=== PATIENT | male | born 1950 | race Caucasian/White ===

== ENCOUNTER → 2017-11-01 08:50 | Outpatient (CLI) | payer MEDICARE, SELFPAY ==
[2017-11-01 10:44] LABS: Hematocrit 43.7 % (40-54); Hemoglobin 14.6 g/dl (13.0-16.5); Mean Corp Hgb Conc 33.4 g/gl (32-36); Mean Corpuscular Volume 92.8 fL (80-94); Mean Platelet Vol. 11.3 fl (6.2-12.0); Platelet Count 232 K/mm3 (150-450); RBC Distribution Width CV 12.5 % (11.6-14.6); RBC Distribution Width SD 41.6 fl (35.1-43.9); Red Blood Count 4.71 M/mm3 (4.6-6.2); White Blood Count 4.8 K/mm3 (4.4-11.0)
[2017-11-01 10:47] LABS: Scan Indicated on CBC? Y/N NO
[2017-11-01 10:56] LABS: ALB/GLOB Ratio 1.1 RATIO (0.9-2.4); AST(SGOT) 41 U/L (15-37); Alanine Aminotransfer ALT/SGPT 96 U/L (16-61); Albumin, Serum 3.8 g/dL (3.2-5.0); Alkaline Phosphatase 62 U/L (45-117); Anion Gap 10 (5-15); BUN 8 mg/dL (7-18); Calcium,Total 8.8 mg/dL (8.5-10.1); Chloride 102 mmol/L (98-107); Cholesterol 218 mg/dL (200); Creatinine, Serum 0.89 mg/dL (0.70-1.30); EST Glomerular Filtration Rate 91 mL/min (>60); Est Glom Filt Rate - Afr Amer 110 mL/min (>60); Globulin 3.5 g/dL (2.2-4.2); Glucose 105 mg/dL (70-110); High Density Lipoprotein 37 mg/dL; Potassium 3.8 mmol/L (3.5-5.1); Protein, Total 7.3 g/dL (6.4-8.2); Sodium Level 142 mmol/L (136-145); T4 Free Direct 0.97 ng/dL (0.76-1.46); Thyroid Stim Hormone (TSH) 2.52 uIU/mL (0.358-3.74); Triglycerides 227 mg/dL; Very Low Density Lipoprotein 45 mg/dL (5-40)
== END ==
PROVIDERS: Family Provider Family Medicine; PCP Family Medicine; Visit Provider Family Medicine
DX: I25.10 Atherosclerotic heart disease of native coronary artery without angina pectoris (principal); E11.9 Type 2 diabetes mellitus without complications; E03.9 Hypothyroidism, unspecified
CPT/HCPCS: 36415; 80053; 80061; 84439; 84443; 85027

== ENCOUNTER → 2017-12-27 12:25 | Outpatient (CLI) | payer MEDICARE, SELFPAY ==
--- NOTE | 2017-12-27 12:33 | CDU_ITS ---
Reason For Study: Carotid Artery Disease Rt. Velocities/BP Lt. Velocities/BP Prox CCA 89/24 cm/sec. Prox CCA 72/21 cm/sec. Mid CCA 66/21 cm/sec. Mid CCA 65/16 cm/sec. Dist CCA 62/19 cm/sec. Dist CCA 66/18 cm/sec. Prox ICA 47/20 cm/sec. Prox ICA 50/11 cm/sec. Mid ICA 70/30 cm/sec. Mid ICA 48/23 cm/sec. Dist ICA 101/37 cm/sec. Dist ICA 56/28 cm/sec. Rt. ICA/CCA = 1.53. Lt. ICA/CCA = 0.86. Prox ECA 82/8 cm/sec. Prox ECA 64/7 cm/sec. Rt. Vert. 26/8 cm/sec. Lt. Vert. 46/18 cm/sec. Right Extracranial There is homogeneous, irregular atherosclerotic plaque noted in the right common carotid artery. There is homogeneous, irregular atherosclerotic plaque noted in the right internal carotid artery. There is no significant atherosclerotic plaque noted in the right external carotid artery. Antegrade flow is noted in the right vertebral artery. Left Extracranial There is heterogeneous, smooth atherosclerotic plaque noted in the left common carotid artery. There is heterogeneous, irregular atherosclerotic plaque noted in the left internal carotid artery. There is heterogeneous, irregular atherosclerotic plaque noted in the left external carotid artery. Antegrade flow is noted in the left vertebral artery. Procedure Carotid Duplex 00778. Exam performed in department. Interpretation Summary Mild (<50%) stenosis right extracranial internal carotid. Mild (<50%) stenosis left extracranial internal carotid. Flow within the vertebral arteries is antegrade bilaterally. Ordering Physician: Jose Lopez Referring Physician: Farhad Tomlinson Performed By: Lisa Brunner, BESS, RVT
== END ==
PROVIDERS: Family Provider Family Medicine; PCP Family Medicine; Visit Provider Surgery Vascular Surgery
DX: Z86.73 Personal history of transient ischemic attack (TIA), and cerebral infarction without residual deficits (principal); Z98.890 Other specified postprocedural states; I10 Essential (primary) hypertension; I25.10 Atherosclerotic heart disease of native coronary artery without angina pectoris; I25.2 Old myocardial infarction; E11.9 Type 2 diabetes mellitus without complications; R09.89 Other specified symptoms and signs involving the circulatory and respiratory systems; M79.2 Neuralgia and neuritis, unspecified; M79.604 Pain in right leg; M79.605 Pain in left leg
CPT/HCPCS: 93880

== ENCOUNTER → 2018-05-22 12:18 | Outpatient (CLI) | payer MEDICARE, SELFPAY ==
[2018-05-22 14:46] LABS: ALB/GLOB Ratio 1.2 RATIO (0.9-2.4); AST(SGOT) 22 U/L (15-37); Alanine Aminotransfer ALT/SGPT 46 U/L (16-61); Albumin, Serum 4.1 g/dL (3.2-5.0); Alkaline Phosphatase 54 U/L (45-117); Anion Gap 9 (5-15); BUN 14 mg/dL (7-18); BUN/Creat Ratio 13.1 RATIO (10-20); Calcium,Total 8.8 mg/dL (8.5-10.1); Chloride 104 mmol/L (98-107); Cholesterol 198 mg/dL (200); Creatinine, Serum 1.07 mg/dL (0.70-1.30); EST Glomerular Filtration Rate 73 mL/min (>60); Est Glom Filt Rate - Afr Amer 89 mL/min (>60); Globulin 3.4 g/dL (2.2-4.2); Glucose 132 mg/dL (74-106); High Density Lipoprotein 34 mg/dL; Potassium 4.3 mmol/L (3.5-5.1); Protein, Total 7.5 g/dL (6.4-8.2); Sodium Level 138 mmol/L (136-145); Thyroid Stim Hormone (TSH) 1.17 uIU/mL (0.358-3.74); Triglycerides 228 mg/dL; Very Low Density Lipoprotein 46 mg/dL (5-40)
== END ==
PROVIDERS: Family Provider Family Medicine; PCP Family Medicine; Visit Provider Family Medicine
DX: E11.9 Type 2 diabetes mellitus without complications (principal); E78.5 Hyperlipidemia, unspecified; R79.89 Other specified abnormal findings of blood chemistry
CPT/HCPCS: 36415; 80053; 80061; 84443

== ENCOUNTER → 2018-06-11 06:19 | Outpatient (CLI) | payer MEDICARE, SELFPAY ==
--- NOTE | 2018-06-11 10:54 | STRESSREP ---
Stress Test Report Pharmacologic myocardial perfusion stress test. 68-year-old man with a history of known coronary artery disease. Stress protocol: Resting EKG demonstrates normal sinus rhythm with a rate of 76 beats minute normal intervals and noted resting blood pressure 120/74 mmHg. 0.4 mg of regadenoson was infused per usual protocol followed by rapid intravenous saline flush injection continuous EKG monitoring was performed. At rest there were no ST or T-wave changes noted suggest abnormal flow reserve at peak infusion no ST or T-wave changes were noted suggest abnormal flow reserve. Patient maintained sinus rhythm with no significant arrhythmias noted. The resting blood pressure is 120/74 the final blood pressure 118/68. No clinical angina was noted. Myocardial perfusion protocol. 14.8 mCi of technetium 99m sestamibi was injected at rest. 0.4 mg of regadenoson was infused per usual protocol peak infusion 44.5 mCi of technetium 99m sestamibi was injected stress images were obtained stress and rest images were reconstructed and compared in the short axis vertical and horizontal long gated images were also obtained Perfusion SPECT analysis: Review of the stress images demonstrate normal uptake of tracer noted in all areas of the myocardium the resting images similarly demonstrate normal uptake of tracer noted in all areas myocardium. No areas of reversibility are noted suggest ischemia no previous infarct is noted. Gated SPECT analysis: The gated ejection fraction is noted to be 72%. Conclusion: Normal pharmacologic myocardial perfusion stress test. Preserved ejection fraction.
== END ==
PROVIDERS: Family Provider Family Medicine; PCP Family Medicine; Visit Provider Internal Medicine Cardiovascular Disease
DX: Z95.1 Presence of aortocoronary bypass graft (principal)
CPT/HCPCS: 78452; 93017; A9500; A4216; J2785

== ENCOUNTER → 2019-02-24 | Outpatient (CLI) | payer MEDICARE, SELFPAY ==
[2019-02-19 14:30] VITALS: BMI 33.1
--- NOTE | 2019-02-24 14:27 | STRESSREP ---
Stress Test Report Date: 02-24-19 Procedure: Exercise tolerance test/imaging study Indications: Chest pain; CAD; PCI; CABG Consent: Per the patient Procedure: The patient exercised on a Rohit protocol for 3 minutes and 22 seconds completing Stage I and 22 seconds of Stage II achieving a peak heart rate of 110 bpm (71 % predicted maximal heart rate) with a peak blood pressure 150/80 mmHg and a peak MET capacity of 4 METs. The baseline ECG demonstrated normal sinus rhythm; nonspecific T wave abnormality. The peak exercise ECG demonstrated subtle nonspecific ST segment depression in leads V4 through V6 and nonspecific T wave abnormality in V1 through V3 with gradual resolution towards baseline in recovery. There was a rare PAC during exercise. The functional capacity was considered decreased. There was chest discomfort during exercise with spontaneous resolution and recovery. The examination was discontinued secondary to dyspnea. Impression: 1. Technically adequate (percent predicted maximal heart rate greater than 85%) exercise tolerance test 2. Peak exercise ECG demonstrated subtle nonspecific ST segment depression in leads V4 through V6 and nonspecific T wave abnormality in V1 through V3 with gradual resolution towards baseline in recovery 3. There was a rare PAC during exercise 4. Nuclear images pending Myocardial perfusion imaging study: Technique: The patient was injected with 13.2 mCi of technetium 99m Cardiolite and subsequently rest SPECT Cardiolite nuclear imaging was obtained in the horizontal long, vertical long, and short axis views. The patient exercised on a Rohit protocol for 3 minutes and 22 seconds completing Stage I and 22 seconds of Stage II achieving a peak heart rate of 110 bpm (71 % predicted maximal heart rate) with a peak blood pressure 150/80 mmHg and a peak MET capacity of 4 METs. The patient was injected with 44.3 mCi of technetium 99m Cardiolite and subsequently stress SPECT Cardiolite nuclear imaging was obtained in the horizontal long, vertical long, and short axis views. A gated Cardiolite study at peak stress was obtained. Interpretation: Rest and stress SPECT Cardiolite nuclear imaging status post realignment, normalization, and attenuation correction, demonstrates relative uniform tracer uptake at rest. Status post stress there is notation of diminished tracer uptake in portions of the basal to mid lateral segments. [There is end systolic thickening and brightening]. The gated Cardiolite study demonstrates [myocardial thickening and inward wall motion]. The reported LVEF is 64 %. Impression: 1. Rest and stress SPECT Cardiolite nuclear imaging demonstrate demonstrate myocardial perfusion changes compatible with stress-induced myocardial ischemia involving portions of the basal to mid lateral segments. 2. The gated Cardiolite study reports an LVEF of 64 %. This note was generated with [employer] software. It may contain incorrect words, spelling, and punctuation that were not noted in checking the note before signing.
== END | disposition home or self-care (01) ==
LOC: CVS 06:23
PROVIDERS: Family Provider Family Medicine; PCP Family Medicine; Referring Provider Nurse Practitioner Family; Visit Provider Nurse Practitioner Family
DX: I25.810 Atherosclerosis of coronary artery bypass graft(s) without angina pectoris (principal); R07.9 Chest pain, unspecified; Z95.5 Presence of coronary angioplasty implant and graft; Z95.1 Presence of aortocoronary bypass graft; I10 Essential (primary) hypertension; E78.5 Hyperlipidemia, unspecified; I73.9 Peripheral vascular disease, unspecified
CPT/HCPCS: 78452; 93017; A9500; A4216

== ENCOUNTER → 2019-02-27 | Outpatient (CLI) | payer MEDICARE, SELFPAY ==
[2019-02-19 14:30] VITALS: BMI 33.1
--- NOTE | 2019-02-27 06:13 | RAD_ITS ---
STUDY: X-RAY CHEST REASON FOR EXAM: Male, 68 years old. Chest pain. TECHNIQUE: PA and lateral views of the chest. COMPARISON: Comparison is made with prior examination dated February 24, 2016. FINDINGS: Hyperinflation. Stable increased markings in the right hemithorax suggestive of scarring. Scattered calcified granulomas. There is no demonstrated pleural abnormality. Sternal cerclage wires and vascular clips are present from a prior sternotomy and coronary artery bypass graft procedure (CABG). Normal mediastinum and krystal. Normal visualized pulmonary arteries. There is atherosclerotic tortuosity of the aortic arch and descending thoracic aorta. There is demineralization of the osseous structures. Normal visualized ribs, clavicles, and shoulders. There is no demonstrated abnormality of the visualized soft tissue structures of the upper abdomen. RAD/Chest PA and Lateral IMPRESSION: Stable examination. Electronically Signed: Stevie Mart, at 10:13 EDT , Service support ,
[2019-02-27 07:34] LABS: Absolute Lymphocyte Count 1.38 X10^3/ul (0.83-4.51); Absolute Neutrophil Count 2.9 X10^3/uL (2.0-7.7); Basophil# 0.04 X10^3/uL; Basophil% 0.8 % (0-1); Eosinophil# 0.24 X10^3/uL; Eosinophils% 4.7 % (0-5); Hematocrit 43.9 % (40-54); Hemoglobin 14.4 g/dl (13.0-16.5); Lymphocyte # 1.38 X10^3/ul (4.0); Lymphocyte % 27.3 % (19-41); Mean Corp Hgb Conc 32.8 g/gl (32-36); Mean Corpuscular Hgb 30.9 pg (27.0-32.0); Mean Corpuscular Volume 94.2 fL (80-94); Mean Platelet Vol. 11.2 fl (6.2-12.0); Monocyte# 0.46 X10^3/uL; Monocyte% 9.1 % (0-10); Neutrophil # 2.92 X10^3/uL (2.7-7.7); Neutrophil % 57.7 % (47-70); Platelet Count 253 K/mm3 (150-450); RBC Distribution Width CV 12.9 % (11.6-14.6); RBC Distribution Width SD 44.2 fl (35.1-43.9); Red Blood Count 4.66 M/mm3 (4.6-6.2); White Blood Count 5.1 K/mm3 (4.4-11.0)
[2019-02-27 07:36] LABS: POSITIVE COUNT NO; POSITIVE DIFFERENTIAL NO; POSITIVE MORPHOLOGY NO
[2019-02-27 07:37] LABS: Anion Gap 8 (5-15); BUN 15 mg/dL (7-18); BUN/Creat Ratio 13.6 RATIO (10-20); Calcium,Total 8.6 mg/dL (8.5-10.1); Chloride 106 mmol/L (98-107); EST Glomerular Filtration Rate 71 mL/min (>60); Est Glom Filt Rate - Afr Amer 86 mL/min (>60); Glucose 99 mg/dL (74-106); Sodium Level 143 mmol/L (136-145)
[2019-02-27 08:22] LABS: AST(SGOT) 22 U/L (15-37); Alanine Aminotransfer ALT/SGPT 38 U/L (16-61); Albumin, Serum 3.6 g/dL (3.2-5.0); Alkaline Phosphatase 65 U/L (45-117); Anion Gap 9 (5-15); BUN 15 mg/dL (7-18); BUN/Creat Ratio 13.2 RATIO (10-20); Calcium,Total 8.6 mg/dL (8.5-10.1); Chloride 106 mmol/L (98-107); Cholesterol 182 mg/dL (200); Creatinine, Serum 1.14 mg/dL (0.70-1.30); EST Glomerular Filtration Rate 68 mL/min (>60); Est Glom Filt Rate - Afr Amer 82 mL/min (>60); Globulin 3.7 g/dL (2.2-4.2); Glucose 96 mg/dL (74-106); High Density Lipoprotein 34 mg/dL; Protein, Total 7.3 g/dL (6.4-8.2); Sodium Level 143 mmol/L (136-145); Triglycerides 293 mg/dL; Very Low Density Lipoprotein 59 mg/dL (5-40)
== END | disposition home or self-care (01) ==
PROVIDERS: Family Provider Family Medicine; PCP Family Medicine; Referring Provider Internal Medicine Cardiovascular Disease; Visit Provider Internal Medicine Cardiovascular Disease
DX: I25.810 Atherosclerosis of coronary artery bypass graft(s) without angina pectoris (principal); Z95.5 Presence of coronary angioplasty implant and graft; Z95.1 Presence of aortocoronary bypass graft; I65.21 Occlusion and stenosis of right carotid artery; E78.5 Hyperlipidemia, unspecified; F17.201 Nicotine dependence, unspecified, in remission; I10 Essential (primary) hypertension; E11.9 Type 2 diabetes mellitus without complications
CPT/HCPCS: 36415; 71046; 80048; 80053; 80061; 84443; 85025

== ENCOUNTER 2019-03-06 08:44 | Day surgery (SDC) | payer MEDICARE, SELFPAY ==
[2019-02-19 14:30] VITALS: BMI 33.1
[2019-03-04 08:59] VITALS: BMI 33.0
--- NOTE | 2019-03-06 12:09 | CL.D_ITS ---
Patient Name: SHAZIA MCCURDY Study Date: 03/06/2019 Performing: Ned Flores MD Ht: 72.04 inches 183 cm : 1950 Wt: 244.71 lbs 111 kg Age: 68 Gender: male BSA: 2.32 PROCEDURE(S) PERFORMED SK82-YTA/COR/CABG CLINICAL PROFILE AND INDICATIONS Indications: Suspected CAD Heart Failure: None Stress/Imaging Stress Test w/SPECT MPI: Yes Result: Positive Intermediate RiskStress Test with SP ECT MPI: Positive Intermediate Risk CAD Presentations: Other: Shortness of breath CONCLUSIONS Severe [place] vessel disease as well as disease of a sequential saphenous vein graft. No significant outflow is noted. Would recommend medical therapy. RECOMMENDATIONS Medical therapy DESCRIPTION OF PROCEDURE The patient arrived to the procedure lab. The risks and benefits of the procedure as well as a full d escription of our services here and current unavailability of surgical backup were fully explained to the patient and/or their significant other prior to the catheterization. The Timeout was completed, verifying the correct patient and procedure. The patient's procedural site was prepped and draped in the usual fashion. Local anesthetic was given subcutaneously to right groin region with Lidocaine 2%. Using a modified Seldinger technique, arterial access was obtained via the right femoral artery, a 5 Fr sheath was inserted. Left Coronary Artery selective angiography was performed in multiple views u sing a 5 Fr. JL4 catheter. Right Coronary Artery selective angiography was then performed in multiple views using a 5 Fr. 3DRC (Gasper) catheter. Saphenous Vein graft to the RCA selective angiography was performed in multiple views using a 5 Fr. 3DRC (Gasper) catheter. Saphenous Vein graft to the RCA selective angiography was performed in multiple views using a 5 Fr. AR MOD catheter. Left internal mammary artery graft to the LAD selective angiography was performed in multiple views using a 5 Fr. AR MOD catheter. Saphenous Vein graft to the Circumflex sequential to the diag selectiv e angiography was performed in multiple views using a 5 Fr. LCB catheter.The arterial sheath was pull ed and manual compression applied until hemostasis is achieved. CORONARY ANGIOGRAPHY DOMINANCE: Right Dominant LEFT HEART ASSESSMENT Left Ventricular Ejection Fraction: by Echo 55 % LEFT MAIN: Moderate luminal irregularities up to 50% LEFT ANTERIOR DESCENDING ARTERY: is occluded CIRCUMFLEX ARTERY: PROX CIRC: Severe disease with a mid segment placed stent with severe disease noted within the stent and then the vessel is totally occluded RIGHT CORONARY ARTERY: PROX RCA: is occluded GRAFTS: HUFF graft to the Mid LAD is patent Saphenous Vein graft to the RPDA is patent Saphenous Vein graft to the RPDA There is mild distal disease noted in this vessel but no high-grade stenosis noted Sequential graft to the Diagonal vessel and obtuse marginal vessel is severely diseased in the body o f the graft. The distal segment anastomosing to the circumflex vessel is totally occluded. Slow aleksander w is noted in the body of this graft. COLLATERAL FLOW: Collateral flow from Right to Left COMPLICATIONS No Complications PROCEDURE MEDICATIONS Versed 1 mg IV Fentanyl 25 mcg IV Fentanyl 25 mcg IV Fentanyl 25 mcg IV Versed 1 mg IV Oxygen: 2 L/min via nasal cannula SUMMARY OF HEMODYNAMIC DATA Time AIR REST ECG 09:44:09 AO 122/76 (97) SA 10:58:39 Signed By Ned Flores MD On 03/06/2019 12:08:01 PM Ned Flores MD
== END 2019-03-06 16:38 | disposition home or self-care (01) ==
LOC: CLSP 08:45
PROVIDERS: Family Provider Family Medicine; PCP Family Medicine; Referring Provider Internal Medicine Cardiovascular Disease; Visit Provider Internal Medicine Cardiovascular Disease
DX: I25.810 Atherosclerosis of coronary artery bypass graft(s) without angina pectoris (principal); I10 Essential (primary) hypertension; E78.00 Pure hypercholesterolemia, unspecified; I73.9 Peripheral vascular disease, unspecified; E11.9 Type 2 diabetes mellitus without complications; G47.33 Obstructive sleep apnea (adult) (pediatric); J44.9 Chronic obstructive pulmonary disease, unspecified; I65.21 Occlusion and stenosis of right carotid artery; E66.9 Obesity, unspecified; Z68.33 Body mass index [BMI] 33.0-33.9, adult; Z86.73 Personal history of transient ischemic attack (TIA), and cerebral infarction without residual deficits; Z95.1 Presence of aortocoronary bypass graft; Z79.84 Long term (current) use of oral hypoglycemic drugs; Z79.82 Long term (current) use of aspirin; Z79.4 Long term (current) use of insulin; Z79.899 Other long term (current) drug therapy; Z87.891 Personal history of nicotine dependence
CPT/HCPCS: 93455; 99152; 99153; J7040; Q9967; C1769

== ENCOUNTER → 2019-10-30 08:45 | Outpatient (CLI) | payer MEDICARE, SELFPAY ==
[2019-10-23 13:54] VITALS: BMI 32.6
--- NOTE | 2019-10-30 08:49 | AAAS_ITS ---
Reason For Study: H/O CABG, ECP Aorta Measurements Aorta Doppler Measurements Proximal aorta measures2.43 x 2.43cm. in cross- Peak systolic flow velocities within the proximal sectional axis. aorta measure 77.1 cm/sec. Proximal aorta measures2.44cm. in longitudinal Peak systolic flow velocities within the mid aorta axis. measure 62.9 cm/sec. Mid aorta measures2.46 x 2.46cm. in cross- Peak systolic flow velocities within the distal sectional axis. aorta measure 64.1 cm/sec. Mid aorta measures2.50cm. in longitudinal axis. Distal aorta measures1.93 x 2.0cm. in cross- sectional axis. Distal aorta measures2.0cm. in longitudinal axis. Common illliacs not seen due to bowel gases and body habitus. PT had difficulty tolerating probe pressure. Interpretation Summary 1. Aortoiliac no aneurysm or stenosis where visualized. Ordering Physician: Ned Flores Referring Physician: rachel Tomlinson Performed By: Karla Monroy, RDCS, RVT
== END ==
LOC: CVS 08:45
PROVIDERS: PCP Family Medicine; Referring Provider Internal Medicine Cardiovascular Disease; Visit Provider Internal Medicine Cardiovascular Disease
DX: I25.709 Atherosclerosis of coronary artery bypass graft(s), unspecified, with unspecified angina pectoris (principal); Z95.1 Presence of aortocoronary bypass graft; Z95.5 Presence of coronary angioplasty implant and graft
CPT/HCPCS: 76706

== ENCOUNTER → 2019-11-26 09:48 | Outpatient (CLI) | payer MEDICARE, SELFPAY ==
[2019-11-09 14:31] VITALS: BMI 32.6
== END ==
PROVIDERS: PCP Family Medicine; Referring Provider Internal Medicine Cardiovascular Disease; Visit Provider Internal Medicine Cardiovascular Disease
DX: I25.708 Atherosclerosis of coronary artery bypass graft(s), unspecified, with other forms of angina pectoris (principal); I25.118 Atherosclerotic heart disease of native coronary artery with other forms of angina pectoris

== ENCOUNTER 2019-12-02 08:14 | Day surgery (SDC) | payer MEDICARE, SELFPAY ==
--- NOTE | 2019-11-09 02:36 | HP_ITS ---
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 Is patient in pain?: No Allergies amlodipine Allergy (Verified 11/09/19 14:30) dyspnea, itching atorvastatin calcium [From Lipitor] Allergy (Verified 11/09/19 14:30) Other lovastatin [From Advicor] Allergy (Verified 11/09/19 14:30) Rash niacin [From Advicor] Allergy (Verified 11/09/19 14:30) Rash rosuvastatin calcium [From Crestor] Allergy (Verified 11/09/19 14:30) Rash Cbeysjc-Sox-Hap Reductase Inhibitor Allergy (Verified 11/09/19 14:30) Hives SODIUM PENTHOL Allergy (Uncoded 10/23/19 13:55) Other Medications Glimepiride [Amaryl] 4 mg PO DAILY 12/05/14 [History Confirmed 11/09/19] Levothyroxine [Synthroid] 75 mcg PO DAILY 12/05/14 [History Confirmed 11/09/19] Tiotropium [place] [Spiriva 18 MCG] 1 puff INHALATION DAILY 12/05/14 [History Confirmed 11/09/19] metFORMIN HCl [Glucophage] 850 mg PO BIDCM 12/05/14 [History Confirmed 11/09/19] Aspirin [Aspirin, Baby] 81 mg PO DAILY@0800 05/05/15 [History Confirmed 11/09/19] Albuterol Inhaler [Ventolin Hfa (SP)] 2 puff INHALATION Q6H PRN PRN 05/16/15 [History Confirmed 11/09/19] gemfibrozil 600 mg tablet 600 mg PO BID 11/18/17 [History Confirmed 11/09/19] insulin glargine 100 unit/mL (3 mL) subcutaneous pen 70 unit SC DAILY ml 02/19/19 [History Confirmed 11/09/19] insulin lispro 100 unit/mL subcutaneous pen 10 unit SC TID 100 Days #30 ml 02/19/19 [History Confirmed 11/09/19] clopidogrel 75 mg tablet 75 mg PO DAILY #90 tab 03/02/19 [Rx Confirmed 11/09/19] furosemide 40 mg tablet 40 mg PO DAILY #90 tab 05/28/19 [Rx Confirmed 11/09/19] ranolazine 500 mg tablet,extended release,12 hr 500 mg PO BID #60 tab 05/28/19 [Rx Confirmed 11/09/19] metoprolol tartrate 25 mg tablet 25 mg PO .COMPLEX #45 tab 07/06/19 [Rx Confirmed 11/09/19] nitroglycerin 0.4 mg sublingual tablet 0.4 mg SUBLINGUAL Q5-15M PRN #25 tab 08/14/19 [Rx Confirmed 11/09/19] budesonide-formoterol HFA 160 mcg-4.5 mcg/actuation aerosol inhaler INHALATION 10/23/19 [History Confirmed 11/09/19] isosorbide mononitrate 30 mg tablet,extended release 24 hr 30 mg PO BID #60 tab 10/23/19 [Rx Confirmed 11/09/19] omeprazole 40 mg capsule,delayed release 40 mg PO DAILY #90 cap 10/23/19 [Rx Confirmed 11/09/19] sitagliptin 100 mg tablet 100 mg PO DAILY tab 10/23/19 [History Confirmed 11/09/19] [facility] Medical History Atherosclerotic heart disease hopi coronary artery w/angina pectoris (Chronic) 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 (Chronic) Essential (primary) hypertension (Chronic) Hyperlipidemia (Chronic) COPD (chronic obstructive pulmonary disease) (Chronic) CVA (cerebral vascular accident) (Chronic) Obesity (Chronic) Occlusion and stenosis of right carotid artery (Chronic) PVD (peripheral vascular disease) (Chronic) Tobacco dependence in remission (Chronic) Type 2 diabetes mellitus (Chronic) Surgical History History of coronary artery stent placement (Resolved 11/13/11) H/O coronary artery bypass surgery (Resolved 06/21/03) History of left heart catheterization (Resolved 03/06/19) Hx of cataract surgery (Resolved) Family History Grandmother Cancer Father FH: brain aneurysm CAD (coronary artery disease) Mother Diabetes Brother , from CABG CAD (coronary artery disease) Social History (Updated 11/09/19 @ 14:36 by Dano Brown MD) how long ago did patient quit smokin alcohol intake: never substance use type: does not use diet: diabetic caffeine: Yes Type: coffee what type of physical activity do you participate in: none seatbelt use: always do you feel safe at home: Yes HPI HPI HPI: SHAZIA MCCURDY, is a 69 M who presents to the office today for HPI HPI Surgical H&P: Yes HPI: SHAZIA MCCURDY, is a 69 M who presents to the office today for Evaluation for endoscopy. I last performed a colonoscopy on him on 02/11/2014. He had a personal history of colonic polyps as well as a family history of colon cancer his colonoscopy was normal and I recommended a 5-year follow-up plan. Patient has been noticing some chronic abdominal pain generalized sore to touch 2 out of 10 and mostly on the left side. He himself has not noticed any blood. His stools have sometimes been looser than normal. ROS General General: Yes fatigue; no weight change, appetite, colon cancer, breast cancer or weakness HEENT HEENT: Yes eye surgery; no difficulty swallowing, eye injury, swollen glands or hoarseness Endo Endocrine: Yes diabetes mellitus; no thyroid disease, thyroid cancer, Hair loss, heat intolerance or cold intolerance Skin Skin: Yes rash; no changing moles Breast Breast: No left breast lump, right breast lump, nipple discharge, breast pain, abnormal mammogram, abnormal US or breast enlargement Musc Musculoskeletal: Yes arthritis; no back problems, rheumatoid arthritis, gout or joint pain Cardio Cardiovascular: Yes heart disease, high blood pressure and heart stent; no murmur, pacemaker, atrial fibrillation, heart attack, palpitations, shortness of breat with exertion or chest pain Psych Psychiatric: No depression, anxiety or hearing voices Resp Respiratory: Yes shortness of breath, Yes sleep apnea, Yes cough, Yes COPD, Yes asthma, Yes emphysema, No wheezing Gastro Gastrointestinal: Yes abdominal pain, No nausea or vomiting, No diarrhea, No constipation, No blood in stool, Yes acid reflux, Yes hemorrhoids, No ulcers, No gallbladder problem, No black,tarry stools Isidro Hematologic: Yes blood thinners, No blood disorders, No bleeding, No anemia, No blood clots Neuro Neurologic: No system reviewed and no additional complaints, except as docu, No as per HPI, No abnormal walking, No abnormal hearing, No abnormal movements, No abnormal speech, No behavioral changes, No burning sensations, No confusion, No seizure-like activity, No unsteadiness, No dizziness, No localized weakness, No frequent falls, No headache(s), No lack of coordination, No loss of vision, No memory loss, Yes numbness, No other visual disturbances, No radiating pain, No restless legs, No sensory deficit, No fainting, Yes tingling, No tremor(s), No weakness, No other Exam Const General: no acute distress, well developed, well hydrated Orientation: oriented to person, oriented to place, oriented to time [facility] Head: normocephalic, atraumatic Ears: external ears normal Mouth: moist mucous membranes Eyes Sclera: sclerae normal Pupils: normal by confrontation Neck Neck: no lymphadenopathy noted Neck mass: No Thyroid: thyroid normal, symmetrical Chest Chest palpation & inspection: normal inspection of the chest Breast Palpation: No nipple discharge Resp Effort & Inspection: normal respiratory effort Auscultation: clear to auscultation bilaterally Percussion: percussion normal Cardio Rate: regular rate Rhythm: regular rhythm Heart Sounds: no murmurs GI Inspection: obesity Palpation: soft, no hepatosplenomegaly, no masses, nontender Rectal Exam: other Other: Rectal exam deferred. Extrem General: normal to inspection, no clubbing, cyanosis or edema Assessment & Plan Problems 1. Generalized abdominal pain R10.84 2. Family history of colon cancer Z80.0 Plan I have discussed the above with the patient. I have offered the patient colonoscopy for evaluation. I have explained the risks/benefits of the procedure and described the procedure. I have discussed the risks with the patient, including but not limited to: infection, bleeding, perforation of the GI tract requiring emergency surgery, inability to complete the procedure, injury to any internal organs, complications of anesthesia, etc. - the patient understands and agrees to proceed. I have answered all the patient's questions to the patient's satisfaction and the patient has no further questions. The patient has been given instructions for the colon cleansing preparation. Coding Level of Care Code Off vis,new,level 3 Diagnoses Generalized abdominal pain R10.84 Family history of colon cancer Z80.0 11/09/19 1436 <Electronically signed by Dano ramírez MD> Date _ Dano Brown MD I have re-examined the patient. There are no clinical changes since date of exam.
[2019-11-09 14:31] VITALS: BMI 32.6
[2019-12-02] VITALS (7 sets, daily range): BP systolic 105–130; BP diastolic 36–79; PULSE 69–77; RESP 17–19; TEMP 36.4–37; O2SAT 93–96; BMI 34.2
[2019-12-02 08:50] LABS: Bedside Glucose 132 mg/dL (70-110)
[2019-12-02] MEDS: Lactated Ringers 1,000 ML 100 ML IV (09:12)
[2019-12-02] MEDS: Ipratropium/Albuterol Sulfate 3 ML AMPUL.NEB INHALATION (09:27)
--- NOTE | 2019-12-02 10:05 | OP.COLON_ITS ---
Patient Name: Georgi Ramires Procedure Date: 12/02/2019 9:16 AM Date of : 1950 Age: 69 Procedure: Colonoscopy Indications: Family history of colon cancer in a first-degree relative, Generalized abdominal pain Providers: Dano Brown MD Referring MD: Marcell Tomlinson Medicines: See the Anesthesia note for documentation of the administered medications Patient Profile: This is a 69 year old male. Refer to note in patient chart for documentation of history and physical. Last Colonoscopy: 2013. Complications: No immediate complications. Procedure: Pre-Anesthesia Assessment: - Prior to the procedure, a History and Physical was performed, and patient medications and allergies were reviewed. The patient's tolerance of previous anesthesia was also reviewed. The risks and benefits of the procedure and the sedation options and risks were discussed with the patient. All questions were answered, and informed consent was obtained. Prior Anticoagulants: The patient has taken aspirin, last dose was 1 day prior to procedure. ASA Grade Assessment: III - A patient with severe systemic disease. After reviewing the risks and benefits, the patient was deemed in satisfactory condition to undergo the procedure. After I obtained informed consent, the scope was passed under direct vision. Throughout the procedure, the patient's blood pressure, pulse, and oxygen saturations were monitored continuously. The Colonoscope was introduced through the anus and advanced to the cecum, identified by appendiceal orifice and ileocecal valve. The colonoscopy was performed without difficulty. The patient tolerated the procedure well. The quality of the bowel preparation was fair. Scope In: 9:42:58 AM Scope Withdrawal Time 0 hours 11 minutes 51 seconds Scope Out: 10:00:00 AM Total Procedure Duration Time 0 hours 17 minutes 2 seconds Findings: Many small-mouthed diverticula were found in the sigmoid colon and descending colon. Non-bleeding internal hemorrhoids were found during retroflexion. The hemorrhoids were mild and small. The exam was otherwise without abnormality. Impression: - Preparation of the colon was fair. - Diverticulosis in the sigmoid colon and in the descending colon. - Non-bleeding internal hemorrhoids. - The examination was otherwise normal. - No specimens collected. Recommendation: - Discharge patient to home. - Resume previous diet. - Continue present medications. - Repeat colonoscopy in 5 years for surveillance. - Return to my office in 1 week. Procedure Code(s): --- Professional --- 37550, Colonoscopy, flexible; diagnostic, including collection of specimen(s) by brushing or washing, when performed (separate procedure) Diagnosis Code(s): --- Professional --- K64.8, Other hemorrhoids Z80.0, Family history of malignant neoplasm of digestive organs R10.84, Generalized abdominal pain K57.30, Diverticulosis of large intestine without perforation or abscess without bleeding CPT copyright 2017 [employer]. All rights reserved. The codes documented in this report are preliminary and upon hand surgeon review may be revised to meet current compliance requirements. MD Dano Velarde MD 12/02/2019 10:05:09 AM This report has been signed electronically. Number of Addenda: 0 Note Initiated On: 12/02/2019 9:16 AM
--- NOTE | 2019-12-02 10:06 | OP.CCLET_ITS ---
12/02/2019 Marcell Tomlinson [address] [place] [address] Re : Colonoscopy procedure for Georgi Ramires Dear Dr. Tomlinson This procedure was performed on Monday, December 02, 2019. My impressions and recommendations are as follows: Impressions : - Preparation of the colon was fair. - Diverticulosis in the sigmoid colon and in the descending colon. - Non-bleeding internal hemorrhoids. - The examination was otherwise normal. - No specimens collected. Recommendations : - Discharge patient to home. - Resume previous diet. - Continue present medications. - Repeat colonoscopy in 5 years for surveillance. - Return to my office in 1 week. My findings are described in the full procedure note, which is enclosed. If I can be of further assistance, please feel free to contact me at Doctor phone number(s): , Fax: [phone], Work: . Sincerely, MD Dano Velarde MD 12/02/2019 10:05:09 AM This report has been signed electronically.
== END 2019-12-02 10:55 | disposition home or self-care (01) ==
LOC: EN 08:15 → AC 08:17
PROVIDERS: PCP Family Medicine; Referring Provider Family Medicine; Visit Provider Surgery
PROC: 0DJD8ZZ Inspection of Lower Intestinal Tract, Via Natural or Artificial Opening Endoscopic (ICD-10-PCS; CPT 45378; principal; 2019-12-02 09:25)
DX: K57.30 Diverticulosis of large intestine without perforation or abscess without bleeding (principal); K64.8 Other hemorrhoids; Z80.0 Family history of malignant neoplasm of digestive organs; Z86.010 Personal history of colon polyps; I25.709 Atherosclerosis of coronary artery bypass graft(s), unspecified, with unspecified angina pectoris; I10 Essential (primary) hypertension; E78.5 Hyperlipidemia, unspecified; J44.9 Chronic obstructive pulmonary disease, unspecified; E66.9 Obesity, unspecified; Z68.32 Body mass index [BMI] 32.0-32.9, adult; I65.21 Occlusion and stenosis of right carotid artery; I73.9 Peripheral vascular disease, unspecified; E11.9 Type 2 diabetes mellitus without complications; G47.30 Sleep apnea, unspecified; G25.81 Restless legs syndrome; K21.9 Gastro-esophageal reflux disease without esophagitis; E06.9 Thyroiditis, unspecified; Z86.73 Personal history of transient ischemic attack (TIA), and cerebral infarction without residual deficits; Z79.4 Long term (current) use of insulin; Z79.84 Long term (current) use of oral hypoglycemic drugs; Z79.82 Long term (current) use of aspirin; Z79.02 Long term (current) use of antithrombotics/antiplatelets; Z79.899 Other long term (current) drug therapy; Z87.891 Personal history of nicotine dependence
CPT/HCPCS: 45378; 82962; 94640; J7120; A4216; J2405

== ENCOUNTER 2019-12-28 09:15 | Outpatient (RCR) | payer MEDICARE, SELFPAY ==
[2019-11-09 14:31] VITALS: BMI 32.6
[2019-12-02 08:34] VITALS: BMI 34.2
== END 2019-12-29 23:59 ==
LOC: CR 09:15
PROVIDERS: PCP Family Medicine; Referring Provider Internal Medicine Cardiovascular Disease; Visit Provider Internal Medicine Cardiovascular Disease
DX: I25.118 Atherosclerotic heart disease of native coronary artery with other forms of angina pectoris (principal); I25.708 Atherosclerosis of coronary artery bypass graft(s), unspecified, with other forms of angina pectoris
CPT/HCPCS: 92971; G0166

== ENCOUNTER 2019-12-30 09:30 | Outpatient (RCR) | payer MEDICARE, SELFPAY ==
[2019-12-02 08:34] VITALS: BMI 34.2
== END 2020-01-28 23:59 ==
LOC: CR 09:30
PROVIDERS: PCP Family Medicine; Referring Provider Internal Medicine Cardiovascular Disease; Visit Provider Internal Medicine Cardiovascular Disease
DX: I25.708 Atherosclerosis of coronary artery bypass graft(s), unspecified, with other forms of angina pectoris (principal); I25.118 Atherosclerotic heart disease of native coronary artery with other forms of angina pectoris

== ENCOUNTER → 2020-01-14 14:53 | Outpatient (CLI) | payer MEDICARE, SELFPAY ==
[2019-12-02 08:34] VITALS: BMI 34.2
[2020-01-14 17:38] LABS: Hemoglobin 13.6 g/dL (13.0-16.5); Mean Corp Hgb Conc 31.6 g/dL (32-36); Mean Corpuscular Hgb 29.8 pg (27.0-32.0); Mean Corpuscular Volume 94.3 fL (80-94); Mean Platelet Vol. 11.5 fl (6.2-12.0); Platelet Count 301 K/mm3 (150-450); RBC Distribution Width CV 12.5 % (11.6-14.6); RBC Distribution Width SD 43.4 fl (35.1-43.9); Red Blood Count 4.56 M/mm3 (4.6-6.2); White Blood Count 7.2 K/mm3 (4.4-11.0)
[2020-01-14 19:06] LABS: AST(SGOT) 24 U/L (15-37); Alanine Aminotransfer ALT/SGPT 35 U/L (16-61); Albumin, Serum 3.8 g/dL (3.2-5.0); Alkaline Phosphatase 50 U/L (45-117); Anion Gap 5 (5-15); BUN 22 mg/dL (7-18); BUN/Creat Ratio 16.2 RATIO (10-20); Calcium,Total 9.5 mg/dL (8.5-10.1); Chloride 101 mmol/L (98-107); Creatinine, Serum 1.36 mg/dL (0.70-1.30); EST Glomerular Filtration Rate 55 mL/min (>60); Est Glom Filt Rate - Afr Amer 67 mL/min (>60); Glucose 142 mg/dL (74-106); PSA,Total - Annual Screen 1.36 ng/mL (0.00-4.00); Potassium 4.5 mmol/L (3.5-5.1); Protein, Total 7.8 g/dL (6.4-8.2); Sodium Level 137 mmol/L (136-145); Thyroid Stim Hormone (TSH) 4.14 uIU/mL (0.358-3.74)
== END ==
PROVIDERS: PCP Family Medicine; Referring Provider Family Medicine; Visit Provider Family Medicine
DX: E11.9 Type 2 diabetes mellitus without complications (principal); Z12.5 Encounter for screening for malignant neoplasm of prostate; J44.9 Chronic obstructive pulmonary disease, unspecified
CPT/HCPCS: 36415; 80053; 84153; 84443; 85027; G0103

== ENCOUNTER 2020-02-26 09:15 | Outpatient (RCR) | payer MEDICARE, SELFPAY ==
[2019-12-02 08:34] VITALS: BMI 34.2
== END 2020-02-28 23:59 ==
LOC: CR 09:15
PROVIDERS: PCP Family Medicine; Referring Provider Internal Medicine Cardiovascular Disease; Visit Provider Internal Medicine Cardiovascular Disease
DX: I25.118 Atherosclerotic heart disease of native coronary artery with other forms of angina pectoris (principal); I25.708 Atherosclerosis of coronary artery bypass graft(s), unspecified, with other forms of angina pectoris
CPT/HCPCS: 92971; G0166

== ENCOUNTER 2020-02-29 06:28 | Outpatient (RCR) | payer MEDICARE, SELFPAY ==
[2019-12-02 08:34] VITALS: BMI 34.2
== END 2020-03-29 23:59 ==
LOC: CR 06:28
PROVIDERS: PCP Family Medicine; Referring Provider Internal Medicine Cardiovascular Disease; Visit Provider Internal Medicine Cardiovascular Disease
DX: I25.118 Atherosclerotic heart disease of native coronary artery with other forms of angina pectoris (principal); I25.708 Atherosclerosis of coronary artery bypass graft(s), unspecified, with other forms of angina pectoris

== ENCOUNTER → 2020-03-11 12:38 | Outpatient (CLI) | payer MEDICARE, SELFPAY ==
[2019-12-02 08:34] VITALS: BMI 34.2
--- NOTE | 2020-03-11 13:15 | CDU_ITS ---
Reason For Study: STENOSIS Rt. Velocities/BP Lt. Velocities/BP Prox CCA 68/17 cm/sec. Prox CCA 73/11 cm/sec. Mid CCA 64/12 cm/sec. Mid CCA 75/17 cm/sec. Dist CCA 54/13 cm/sec. Dist CCA 90/16 cm/sec. Prox ICA 57/22 cm/sec. Prox ICA 63/22 cm/sec. Mid ICA 91/32 cm/sec. Mid ICA 70/21 cm/sec. Dist ICA 92/37 cm/sec. Dist ICA 72/27 cm/sec. Rt. ICA/CCA = 1.4. Lt. ICA/CCA = 1.0. Prox ECA 73/7 cm/sec. Prox ECA 85/9 cm/sec. Rt. Vert. 41/10 cm/sec. Lt. Vert. 67/20 cm/sec. Right Extracranial There is homogeneous, smooth atherosclerotic plaque noted in the right common carotid artery. There is homogeneous, smooth atherosclerotic plaque noted in the right internal carotid artery. There is homogeneous, smooth atherosclerotic plaque noted in the right external carotid artery. Antegrade flow is noted in the right vertebral artery. There is heterogeneous, irregular atherosclerotic plaque noted in the right bulb. Left Extracranial There is heterogeneous, irregular atherosclerotic plaque noted in the left common carotid artery. There is heterogeneous, irregular atherosclerotic plaque noted in the left internal carotid artery. There is heterogeneous, irregular atherosclerotic plaque noted in the left external carotid artery. Antegrade flow is noted in the left vertebral artery. There is heterogeneous, irregular atherosclerotic plaque noted in the left bulb. Procedure Carotid Duplex [id number]. Exam performed in department. Interpretation Summary Mild (<50%) stenosis right extracranial internal carotid. Mild (<50%) stenosis left extracranial internal carotid. Flow within the vertebral arteries is antegrade bilaterally. Ordering Physician: Jose Lopez Referring Physician: SONJA MCMILLAN Performed By: Marika Vazquez, BESS, RVT
== END ==
PROVIDERS: PCP Family Medicine; Referring Provider Surgery Vascular Surgery; Visit Provider Surgery Vascular Surgery
DX: I65.23 Occlusion and stenosis of bilateral carotid arteries (principal); Z86.73 Personal history of transient ischemic attack (TIA), and cerebral infarction without residual deficits; Z98.890 Other specified postprocedural states
CPT/HCPCS: 93880

== ENCOUNTER 2020-03-31 01:38 | Emergency (ER) | payer MEDICARE, SELFPAY ==
[2019-12-02 08:34] VITALS: BMI 34.2
[2020-03-31 01:40] VITALS: BP 152/82; PULSE 80; RESP 18; TEMP 36.9; O2SAT 92; BMI 35.2
--- NOTE | 2020-03-31 01:46 | ED.DCSUM_ITS ---
History of Present Illness Chief Complaint: Overdose Informant: Patient Narrative: Patient stated he went to take his long-acting insulin this evening and normally takes 60 units and gave himself an extra short acting insulin. His blood sugar at that time approximately 4 hours ago was 180. It is slowly come down into the low 100s. He denies any symptoms. He did take some glucose tablets and a piece of candy. Currently he feels okay. He called poison control and they advised him to come in for further evaluation and monitoring to make sure he does not bottom out his sugars. - Past Medical History (1) Hx of colonoscopy Status: Acute Comment: 11/03/2019 (2) Atherosclerosis of coronary artery bypass graft of [place] heart with angina pectoris Status: Chronic (3) Atherosclerotic heart disease [place] coronary artery w/angina pectoris Status: Chronic (4) COPD (chronic obstructive pulmonary disease) Status: Chronic (5) CVA (cerebral vascular accident) Status: Chronic (6) Essential (primary) hypertension Status: Chronic (7) Hyperlipidemia Status: Chronic (8) Obesity Status: Chronic (9) Occlusion and stenosis of right carotid artery Status: Chronic (10) PVD (peripheral vascular disease) Status: Chronic (11) Tobacco dependence in remission Status: Chronic (12) Type 2 diabetes mellitus Status: Chronic (13) H/O coronary artery bypass surgery Status: Resolved Comment: CABG X4 HUFF to LAD, Sequential SVG to D1 & LCx & SVG to RCA 06/21/2003 (14) History of coronary artery stent placement Status: Resolved Comment: NBF-[id number]-[id number]-Distal Cx w/ 4.0 x 16 mm and 4.0 x 8 mm Promus Element 11/13/2011 (15) History of left heart catheterization Status: Resolved Comment: Severe [place] vessel disease as well as disease of a sequential saphenous vein graft. No significant outflow is noted. Would recommend medical therapy. Past Medical History - Allergies and Home Meds Allergies/Adverse Reactions: Allergies amlodipine Allergy (Verified 12/09/19 08:07) dyspnea, itching atorvastatin calcium [From Lipitor] Allergy (Verified 12/09/19 08:07) Other lovastatin [From Advicor] Allergy (Verified 12/09/19 08:07) Rash niacin [From Advicor] Allergy (Verified 12/09/19 08:07) Rash rosuvastatin calcium [From Crestor] Allergy (Verified 12/09/19 08:07) Rash Cpaynlr-Ylp-Swq Reductase Inhibitor Allergy (Verified 12/09/19 08:07) Hives sodium pentothal Allergy (Uncoded 12/09/19 08:07) Other sister had reaction/ pt states was tested and also has reaction Primary Care Physician: Marcell oTmlinson MD [Primary Care Provider] - Prior records reviewed: Yes Past Medical History: - - See problem list Surgical History: coronary bypass surgery Lives: With Family Smoking Status: Former smoker Alcohol: None Drugs: None - Family History Paternal Family History: Family History (Last Reviewed 12/09/19 @ 08:06 by Kala Osei) Grandmother Cancer Father FH: brain aneurysm CAD (coronary artery disease) Mother Diabetes Brother CAD (coronary artery disease) Family History: Reports: Heart Disease Review of Systems General: Denies: Chills, Fever, Sweats Eyes: Denies: Visual changes - bilaterally, Diplopia ENT: Denies: Rhinorrhea, Sore throat Cardiovascular: Denies: Chest pain, Palpitations Respiratory: Denies: Dyspnea, Cough, Dyspnea on exertion Gastrointestinal: Denies: Abdominal pain, Nausea, Vomiting, Diarrhea, Melena, Hematochezia Genitourinary: Denies: Dysuria, Hematuria, Frequency Musculoskeletal: Denies: Back pain, Extremity Pain Skin: Denies: Rash, Wounds Neurological: Denies: Headache, Weakness, Numbness Physical Exam Vital Signs/Narrative: Vital Signs Temp Pulse Resp BP Pulse Ox 03/31/20 01:40 98.5 F 80 18 152/82 H 92 General: Well nourished, Well developed, No Acute Distress Head: Normocephalic, Atraumatic Eyes: Perrl, EOMI ENT: Moist mucous membranes, No rhinorrhea Neck: Supple, Nontender Cardiovascular: Regular rate, Regular rhythm, No murmurs Respiratory: No distress, CTA bilaterally, Chest nontender Abdomen: Soft, Nontender, Nondistended, Normal bowel sounds Back: Nontender, Normal Inspection Extremities: Nontender, No edema Skin: Normal color, No rash Neurological: Alert, Oriented x3, Cranial nerves II-XII grossly intact, Normal Strength, Normal Sensation Psychological: Normal affect, Normal Mood Diagnostic/Tx/Re-eval - Medical Decision Making BGT obtained. It is 103. Patient given an oral snack. Repeat blood sugar 1 hour later is obtained. Blood sugar remains above 100. At this time I feel the patient can be discharged. He took this medication approximately 5 hours ago. We will continue to eat snacks throughout the evening and follow-up as an outpatient ED Disposition - Plan for ED Patient: Disposition: Home or Assisted Living Diagnosis: Insulin overdose Instructions: ED HYPOGLYCEMIA Insulin Rxn Referrals: Marcell Tomlinson MD [Primary Care Provider] -
[2020-03-31 01:55] LABS: Bedside Glucose 103 mg/dL (70-110)
[2020-03-31 02:56] LABS: Bedside Glucose 118 mg/dL (70-110)
[2020-03-31 02:58] VITALS: BP 147/60; PULSE 75; RESP 18
== END 2020-03-31 02:58 | disposition home or self-care (01) ==
PROVIDERS: Emergency Provider Emergency Medicine; PCP Family Medicine
DX: T38.3X1A Poisoning by insulin and oral hypoglycemic [antidiabetic] drugs, accidental (unintentional), initial encounter (principal); Y92.9 Unspecified place or not applicable; I25.119 Atherosclerotic heart disease of native coronary artery with unspecified angina pectoris; J44.9 Chronic obstructive pulmonary disease, unspecified; I10 Essential (primary) hypertension; E78.5 Hyperlipidemia, unspecified; E66.9 Obesity, unspecified; E11.51 Type 2 diabetes mellitus with diabetic peripheral angiopathy without gangrene; Z86.73 Personal history of transient ischemic attack (TIA), and cerebral infarction without residual deficits; Z95.1 Presence of aortocoronary bypass graft; Z79.4 Long term (current) use of insulin; Z79.84 Long term (current) use of oral hypoglycemic drugs; Z79.82 Long term (current) use of aspirin; Z79.899 Other long term (current) drug therapy; Z87.891 Personal history of nicotine dependence
CPT/HCPCS: 82962; 99282

== ENCOUNTER → 2020-04-15 08:12 | Outpatient (CLI) | payer MEDICARE, SELFPAY ==
[2020-03-31 01:40] VITALS: BMI 35.2
[2020-04-15 10:27] LABS: Anion Gap 2 (5-15); BUN 22 mg/dL (7-18); BUN/Creat Ratio 16.5 RATIO (10-20); Calcium,Total 9.8 mg/dL (8.5-10.1); Chloride 101 mmol/L (98-107); Creatinine, Serum 1.33 mg/dL (0.70-1.30); EST Glomerular Filtration Rate 57 mL/min (>60); Est Glom Filt Rate - Afr Amer 69 mL/min (>60); Glucose 96 mg/dL (74-106); Potassium 4.1 mmol/L (3.5-5.1); Sodium Level 138 mmol/L (136-145)
== END ==
PROVIDERS: PCP Family Medicine; Visit Provider Family Medicine
DX: E03.9 Hypothyroidism, unspecified (principal)
CPT/HCPCS: 36415; 80048; 84443

== ENCOUNTER 2020-09-29 00:29 | Emergency (ER) | payer MEDICARE, SELFPAY ==
[2020-04-25 12:48] VITALS: BMI 34.8
[2020-09-29 00:30] VITALS: BP 154/85; PULSE 73; RESP 18; TEMP 36.8; O2SAT 95; BMI 35.6
--- NOTE | 2020-09-29 01:11 | ED.VIS.GEN ---
History of Present Illness Chief Complaint: Weakness Narrative: 70-year-old male presenting with right leg cramping. He states is been a problem for about a week. He is not had this before. He has not called his primary care doctor. He does not have a vascular surgeon but does have peripheral vascular disease. Patient states he is on aspirin and Plavix. He states that he is unable to longer distances now because of his leg cramping. He has had episodes where he fell. He did not injure himself significantly. He states that after he sits for a minute or 2 he is able to get up and walk again. Feels some of this is due to his COPD and he gets short of breath while he is walking. He is not had chest pain. His shortness of breath is not worse than usual. He is not had a fever, cough. - Past Medical History (1) Atherosclerosis of coronary artery bypass graft of [place] heart with angina pectoris Status: Chronic (2) COPD (chronic obstructive pulmonary disease) Status: Chronic (3) CVA (cerebral vascular accident) Status: Chronic (4) Essential (primary) hypertension Status: Chronic (5) Hyperlipidemia Status: Chronic (6) Obesity Status: Chronic Past Medical History - Allergies and Home Meds Allergies/Adverse Reactions: Allergies amlodipine Allergy (Verified 09/29/20 00:34) dyspnea, itching atorvastatin calcium [From Lipitor] Allergy (Verified 09/29/20 00:34) Other lovastatin [From Advicor] Allergy (Verified 09/29/20 00:34) Rash niacin [From Advicor] Allergy (Verified 09/29/20 00:34) Rash rosuvastatin calcium [From Crestor] Allergy (Verified 09/29/20 00:34) Rash Lingdyf-Elv-Pxe Reductase Inhibitor Allergy (Verified 12/09/19 08:07) Hives sodium pentothal Allergy (Uncoded 12/09/19 08:07) Other sister had reaction/ pt states was tested and also has reaction Primary Care Physician: Marcell Tomlinson MD [Primary Care Provider] - Prior records reviewed: Yes Surgical History: coronary bypass surgery Lives: Spouse/ Significant Other Smoking Status: Former smoker Alcohol: None Drugs: None - Family History Paternal Family History: Family History (Last Reviewed 12/09/19 @ 08:06 by Kala Osei) Grandmother Cancer Father FH: brain aneurysm CAD (coronary artery disease) Mother Diabetes Brother CAD (coronary artery disease) Family History: Reports: Heart Disease Review of Systems General: Denies: Chills, Fever, Sweats Eyes: Denies: Visual changes - bilaterally, Diplopia ENT: Denies: Rhinorrhea, Sore throat Cardiovascular: Denies: Chest pain, Palpitations Respiratory: Denies: Dyspnea, Cough, Dyspnea on exertion Gastrointestinal: Denies: Abdominal pain, Nausea, Vomiting, Diarrhea, Melena, Hematochezia Genitourinary: Denies: Dysuria, Hematuria, Frequency Musculoskeletal: Reports: Extremity Pain - Right leg cramping. Denies: Swelling Skin: Denies: Rash, Abscess Neurological: Denies: Headache, Weakness Psych: Denies: Depression, Anxiety Physical Exam Vital Signs/Narrative: Vital Signs Temp Pulse Resp BP Pulse Ox 09/29/20 00:30 98.3 F 73 18 154/85 H 95 Inital Vital Signs reviewed: Yes General: Well nourished, No Acute Distress Head: Normocephalic, Atraumatic Eyes: Perrl, EOMI ENT: Moist mucous membranes Cardiovascular: Regular rate, Regular rhythm Respiratory: No distress, CTA bilaterally Extremities: Nontender, No edema, - - 2+ pedal pulses bilaterally. 5/5 lower extremity strength bilaterally. Skin: Normal color, No rash. Negative for: Cyanosis, Diaphoresis Neurological: Alert, Oriented x3, Cranial nerves II-XII grossly intact Psychological: Normal affect, Normal Mood Diagnostic/Tx/Re-eval Laboratory Data 09/29/20 09/29/20 00:45 00:45 WBC 6.4 RBC 4.68 Hgb 14.3 Hct 45.0 MCV 96.2 H MCH 30.6 MCHC 31.8 L RDW Std Deviation 43.9 RDW Coeff of Aliza 12.6 Plt Count 273 MPV 11.0 Immature Gran % (Auto) 0.800 Neut % (Auto) 71.4 H Lymph % (Auto) 17.8 L [place] % (Auto) 7.8 Eos % (Auto) 1.7 Baso % (Auto) 0.5 Absolute Neuts (auto) 4.6 Absolute Lymphs (auto) 1.14 Nucleated RBC % 0 Sodium 138 Potassium 4.4 Chloride 101 Carbon Dioxide 35.0 H Anion Gap 2 L BUN 23 H Creatinine 1.32 H Estim Creat Clear Calc 54.53 Est GFR (MDRD) Af Amer 69 Est GFR (MDRD) Non-Af 57 L BUN/Creatinine Ratio 17.4 Glucose 135 H Calcium 9.1 Magnesium 2.0 - Medical Decision Making 70-year-old male presenting with leg cramping on the right leg. He states that he has been problem problems with this for about a week. He has not seen his PCP. He previously had a vascular surgeon which she has not seen. He does state that his right leg gets tired and he has fallen. He has not injured himself significantly. He does have a walker but is not using this. I did check lab work which does not show anything remarkable. On physical exam he is neurovascularly intact and has 2+ pedal pulses bilaterally. After long discussion of whether we should transfer him or whether he will go home and talk to his primary care physician he feels comfortable going home and talking to his primary care physician. He is counseled to use his walker and to walk short distances so he does not fall. It is possible he is having intermittent claudication although it do not think he needs an emergent transfer and he feels comfortable going home. Patient will call his PCP tomorrow. He was given return precautions. Patient stable for discharge at this time. Impression: 1. Leg cramping ED Disposition - Plan for ED Patient: Disposition: Home or Assisted Living Instructions: ED Peripheral Artery Disease (PAD) Referrals: Marcell Tomlinson MD [Primary Care Provider] -
[2020-09-29 01:15] LABS: Absolute Lymphocyte Count 1.14 X10^3/uL (0.83-4.51); Absolute Neutrophil Count 4.6 X10^3/uL (2.0-7.7); Basophil# 0.03 X10^3/uL; Basophil% 0.5 % (0-1); Eosinophil# 0.11 X10^3/uL; Eosinophils% 1.7 % (0-5); Hemoglobin 14.3 g/dL (13.0-16.5); Lymphocyte # 1.14 X10^3/ul (4.0); Lymphocyte % 17.8 % (19-41); Mean Corp Hgb Conc 31.8 g/dL (32-36); Mean Corpuscular Hgb 30.6 pg (27.0-32.0); Mean Corpuscular Volume 96.2 fL (80-94); Monocyte% 7.8 % (0-10); NRBC Flagged by Analyzer 0 % (0-5); Neutrophil # 4.58 X10^3/uL (2.7-7.7); Neutrophil % 71.4 % (47-70); Platelet Count 273 K/mm3 (150-450); RBC Distribution Width CV 12.6 % (11.6-14.6); RBC Distribution Width SD 43.9 fl (35.1-43.9); Red Blood Count 4.68 M/mm3 (4.6-6.2); White Blood Count 6.4 K/mm3 (4.4-11.0)
[2020-09-29 01:25] LABS: Anion Gap 2 (5-15); BUN 23 mg/dL (7-18); BUN/Creat Ratio 17.4 RATIO (10-20); Calcium,Total 9.1 mg/dL (8.5-10.1); Chloride 101 mmol/L (98-107); Creatinine, Serum 1.32 mg/dL (0.70-1.30); EST Glomerular Filtration Rate 57 mL/min (>60); Est Glom Filt Rate - Afr Amer 69 mL/min (>60); Estimated Creatinine Clearance 54.53 ml/min; Glucose 135 mg/dL (74-106); Potassium 4.4 mmol/L (3.5-5.1); Sodium Level 138 mmol/L (136-145)
[2020-09-29 02:03] VITALS: BP 144/82; PULSE 72; RESP 18; O2SAT 98
== END 2020-09-29 02:04 | disposition home or self-care (01) ==
PROVIDERS: Emergency Provider Student in an Organized Health Care Education/Training Program; PCP Family Medicine
DX: R25.2 Cramp and spasm (principal); I73.9 Peripheral vascular disease, unspecified; J44.9 Chronic obstructive pulmonary disease, unspecified; I10 Essential (primary) hypertension; E78.5 Hyperlipidemia, unspecified; E66.9 Obesity, unspecified; I25.119 Atherosclerotic heart disease of native coronary artery with unspecified angina pectoris; Z86.73 Personal history of transient ischemic attack (TIA), and cerebral infarction without residual deficits; Z95.1 Presence of aortocoronary bypass graft; Z79.4 Long term (current) use of insulin; Z79.82 Long term (current) use of aspirin; Z79.899 Other long term (current) drug therapy; Z87.891 Personal history of nicotine dependence
CPT/HCPCS: 80048; 83735; 85025; 99283; A4216

== ENCOUNTER → 2020-10-05 10:49 | Outpatient (CLI) | payer MEDICARE, SELFPAY ==
[2020-09-29 00:30] VITALS: BMI 35.6
--- NOTE | 2020-10-05 10:53 | RAD_ITS ---
HISTORY: abd pain, nausea, passing out ADDITIONAL HISTORY: None. COMPARISON: None EXAMINATION/TECHNIQUE: XR Abdomen 1 View Number of images including paperwork: 3 FINDINGS: FREE AIR: None detected. BOWEL GAS PATTERN: Nonobstructive. Moderate amount of colonic stool. CALCIFICATIONS: No definite urinary tract calculi. ORGANS: No evidence of organomegaly. SOFT TISSUES: Unremarkable. BONES: No acute skeletal findings. DEVICES: None. RAD/Abdomen Single View IMPRESSION: No acute abdominal abnormality is radiographically apparent. at [id number] Reported and signed by: Charlene Mcdaniel MD Electronically Signed: Charlene Mcdaniel MD at 23:13 EST Tel , Service support ,
[2020-10-05 12:59] LABS: Erythrocyte Sedimentation Rate 10 mm/hr (0-20)
[2020-10-05 13:00] LABS: AST(SGOT) 10 U/L (15-37); Alanine Aminotransfer ALT/SGPT 28 U/L (16-61); Albumin, Serum 3.7 g/dL (3.2-5.0); Alkaline Phosphatase 60 U/L (45-117); Amylase 30 U/L (25-115); Anion Gap 4 (5-15); BUN 17 mg/dL (7-18); Calcium,Total 9.4 mg/dL (8.5-10.1); Chloride 103 mmol/L (98-107); Creatinine, Serum 1.21 mg/dL (0.70-1.30); EST Glomerular Filtration Rate 63 mL/min (>60); Est Glom Filt Rate - Afr Amer 76 mL/min (>60); Globulin 3.7 g/dL (2.2-4.2); Glucose 177 mg/dL (74-106); Lipase 64 U/L (73-393); Potassium 3.8 mmol/L (3.5-5.1); Protein, Total 7.4 g/dL (6.4-8.2); Sodium Level 138 mmol/L (136-145)
[2020-10-05 13:11] LABS: Absolute Lymphocyte Count 1.21 X10^3/uL (0.83-4.51); Basophil# 0.03 X10^3/uL; Basophil% 0.4 % (0-1); Eosinophil# 0.12 X10^3/uL; Eosinophils% 1.7 % (0-5); Hematocrit 43.7 % (40-54); Hemoglobin 14.1 g/dL (13.0-16.5); Lymphocyte # 1.21 X10^3/ul (4.0); Lymphocyte % 17.3 % (19-41); Mean Corp Hgb Conc 32.3 g/dL (32-36); Mean Corpuscular Hgb 30.3 pg (27.0-32.0); Mean Corpuscular Volume 93.8 fL (80-94); Mean Platelet Vol. 11.4 fl (6.2-12.0); Monocyte# 0.64 X10^3/uL; Monocyte% 9.2 % (0-10); NRBC Flagged by Analyzer 0 % (0-5); Neutrophil # 4.95 X10^3/uL (2.7-7.7); Neutrophil % 70.8 % (47-70); Platelet Count 273 K/mm3 (150-450); RBC Distribution Width CV 12.2 % (11.6-14.6); RBC Distribution Width SD 41.9 fl (35.1-43.9); Red Blood Count 4.66 M/mm3 (4.6-6.2)
== END ==
PROVIDERS: PCP Family Medicine; Referring Provider Family Medicine; Visit Provider Family Medicine
DX: R10.9 Unspecified abdominal pain (principal)
CPT/HCPCS: 36415; 74018; 80053; 82150; 83690; 85025; 85652; 87086; 87635; U0003

== ENCOUNTER 2020-10-06 16:02 | Inpatient (IN) | payer MEDICARE, SELFPAY ==
[2020-10-06] VITALS (9 sets, daily range): BP systolic 125–169; BP diastolic 68–116; PULSE 66–78; RESP 18–22; TEMP 36.1–36.6; O2SAT 91–99; BMI 35.2; BMI 34.9; BMI 35.0
--- NOTE | 2020-10-06 16:28 | EKG12_ITS ---
Test Reason : Blood Pressure : / mmHG Vent. Rate : 071 BPM Atrial Rate : 071 BPM P-R Int : 184 ms QRS Dur : 090 ms QT Int : 388 ms P-R-T Axes : 027 055 086 degrees QTc Int : 421 ms Normal sinus rhythm Normal ECG Confirmed by LENA HUGGINS, JAILYN ([id number]), content editor IVIS TOLENTINO ([id number]) on 10/10/2020 9:49:58 AM Referred By: MOOSE Confirmed By:JAILYN PAREDES MD
--- NOTE | 2020-10-06 16:36 | ED.VIS.GEN ---
History of Present Illness Chief Complaint: Weakness Narrative: Presents with generalized weakness, he has decreased p.o. intake and he had hypoglycemia at home quite a few times this week. He wears oxygen at home, 3 L he tells me his breathing is not worse than normal. He has no fevers or chills. He has no chest pain. He denies back pain. His main concern and problem is generalized weakness. He normally ambulates around the house without any difficulty but today he could not even get out of bed. Past Medical History - Allergies and Home Meds Allergies/Adverse Reactions: Allergies amlodipine Allergy (Verified 10/06/20 16:30) dyspnea, itching atorvastatin calcium [From Lipitor] Allergy (Verified 10/06/20 16:30) Other lovastatin [From Advicor] Allergy (Verified 10/06/20 16:30) Rash niacin [From Advicor] Allergy (Verified 10/06/20 16:30) Rash rosuvastatin calcium [From Crestor] Allergy (Verified 10/06/20 16:30) Rash Txomrtj-Jjj-Zap Reductase Inhibitor Allergy (Verified 10/06/20 16:30) Hives sodium pentothal Allergy (Uncoded 10/06/20 16:30) Other sister had reaction/ pt states was tested and also has reaction Past Medical History: - - Hypertension, hypercholesterolemia, diabetes Surgical History: coronary bypass surgery Smoking Status: Former smoker - Family History Paternal Family History: Family History (Last Reviewed 12/09/19 @ 08:06 by Kala Osei) Grandmother Cancer Father FH: brain aneurysm CAD (coronary artery disease) Mother Diabetes Brother CAD (coronary artery disease) Family History: Reports: Heart Disease Review of Systems All systems negative except as indicated General: Reports: - - Generalized weakness as in HPI. Denies: Fever Eyes: Denies: Visual changes - bilaterally Cardiovascular: Denies: Chest pain Respiratory: Denies: Dyspnea, Cough Gastrointestinal: Denies: Abdominal pain, Nausea, Vomiting Genitourinary: Denies: Dysuria, Hematuria Musculoskeletal: Denies: Myalgias, Arthralgias, Neck pain, Back pain, Extremity Pain Skin: Denies: Rash Neurological: Denies: Headache, Parasthesia Endocrine: Denies: Polyuria Hematologic: Denies: Easy bruising Physical Exam Vital Signs/Narrative: Vital Signs Temp Pulse Resp BP Pulse Ox 10/06/20 16:30 97.9 F 74 22 H 150/81 H 91 10/06/20 16:02 97.9 F 74 22 H 150/81 H 91 Inital Vital Signs reviewed: Yes General: Well nourished, Well developed Head: Normocephalic, Atraumatic ENT: Moist mucous membranes, No rhinorrhea Neck: Supple Cardiovascular: Regular rate, Regular rhythm Respiratory: - - Coarse bilateral breath sounds, somewhat diminished breath sounds. He is speaking in full sentences without respiratory distress. Abdomen: Soft, Nontender, Nondistended Back: Nontender, Normal Inspection. Negative for: CVA tenderness Extremities: Nontender, No edema Skin: Normal color, No rash Neurological: Alert, Normal Strength, Normal Sensation Diagnostic/Tx/Re-eval Chest X-Ray - ED: 1 View, Read by ED Physician, Read by Radiologist, Normal, Heart, Lungs, Mediastinum, Bony Structures, No Acute Disease - Rhythm Strip Rhythm Strip: Sinus Rhythm Rate: 71 Ectopy: None - EKG Initial EKG Interpretation: - - Normal sinus rhythm with a rate of 71. Normal SC and QTc intervals. No ischemic changes. Interpreted by emergency doctor - Medical Decision Making Patient has an overall unremarkable work-up, he does have evidence of slight dehydration I gave him IV fluids after that I try to ambulate him, he is unable to even get out of bed without feeling wobbly and almost falling down. I do not believe he is safe for discharge. He meets need more of a work-up. I will admit him to the hospital. ED Disposition - Plan for ED Patient: Diagnosis: Generalized weakness
--- NOTE | 2020-10-06 16:39 | RAD_ITS ---
STUDY: X-RAY CHEST REASON FOR EXAM: Male, 70 years old. PT complaining of INCREASED WEAKNESS X1 WEEK. TECHNIQUE: Single frontal view of the chest. COMPARISON: 02/27/2019. FINDINGS: There is no new focal consolidation. There are stable linear opacities within the right upper lung. The lungs are hyperinflated. Sternal cerclage wires and vascular clips are present from a prior sternotomy and coronary artery bypass graft procedure (CABG). The cardiac silhouette is within normal limits Normal mediastinum and krystal. Normal visualized pulmonary arteries. Normal visualized aortic arch and descending thoracic aorta. Normal visualized thoracic spine. Normal visualized ribs, clavicles, and shoulders. There is no demonstrated abnormality of the visualized soft tissue structures of the upper abdomen. RAD/Chest 1 View (Portable) IMPRESSION: No acute cardiopulmonary process. Electronically Signed: Brenna Almodovar MD at 16:59 EST Tel , Service support ,
[2020-10-06 16:42] LABS: Absolute Lymphocyte Count 1.03 X10^3/uL (0.83-4.51); Absolute Neutrophil Count 5.6 X10^3/uL (2.0-7.7); Basophil# 0.04 X10^3/uL; Basophil% 0.6 % (0-1); Eosinophils% 1.4 % (0-5); Hematocrit 45.5 % (40-54); Hemoglobin 14.3 g/dL (13.0-16.5); Lymphocyte # 1.03 X10^3/ul (4.0); Lymphocyte % 14.2 % (19-41); Mean Corp Hgb Conc 31.4 g/dL (32-36); Mean Corpuscular Hgb 29.9 pg (27.0-32.0); Mean Corpuscular Volume 95.2 fL (80-94); Mean Platelet Vol. 11.2 fl (6.2-12.0); Monocyte% 6.9 % (0-10); NRBC Flagged by Analyzer 0 % (0-5); Neutrophil # 5.55 X10^3/uL (2.7-7.7); Neutrophil % 76.3 % (47-70); Platelet Count 285 K/mm3 (150-450); RBC Distribution Width CV 12.4 % (11.6-14.6); RBC Distribution Width SD 43.8 fl (35.1-43.9); Red Blood Count 4.78 M/mm3 (4.6-6.2); White Blood Count 7.3 K/mm3 (4.4-11.0)
[2020-10-06 16:59] LABS: AST(SGOT) 16 U/L (15-37); Alanine Aminotransfer ALT/SGPT 32 U/L (16-61); Albumin, Serum 3.9 g/dL (3.2-5.0); Alkaline Phosphatase 63 U/L (45-117); Anion Gap 3 (5-15); BUN 21 mg/dL (7-18); BUN/Creat Ratio 14.7 RATIO (10-20); Chloride 100 mmol/L (98-107); Creatinine, Serum 1.43 mg/dL (0.70-1.30); EST Glomerular Filtration Rate 52 mL/min (>60); Est Glom Filt Rate - Afr Amer 63 mL/min (>60); Estimated Creatinine Clearance 50.34 ml/min; Globulin 3.8 g/dL (2.2-4.2); Glucose 234 mg/dL (74-106); Potassium 4.4 mmol/L (3.5-5.1); Protein, Total 7.7 g/dL (6.4-8.2); Sodium Level 137 mmol/L (136-145)
[2020-10-06 18:01] LABS: Bacteria 0 SEEN /hpf (None Seen); Mucous, Urine 0 SEEN /hpf (<or=2+); Red Blood Cells-Urine 0 SEEN /hpf (0-5); Squamous Epithelial Cells - UA 0 SEEN /hpf (0-5); White Blood Cells 0 SEEN /hpf (0-5)
[2020-10-06 18:33] LABS: Color, Urine Yellow (Yellow); Glucose, Dipstick Normal (Normal); Ketone-Dipstick 5 mg/dl (Negative); Leukocyte Esterase-Dipstick Negative /ul (Negative); Nitrite-Dipstick Negative (Negative); Occult Blood-Urine Negative /ul (Negative); Protein-Dipstick Negative (Negative); Urine Bilirubin Dipstick Negative (Negative); Urine Clarity Clear (Clear); Urine Urobilinogen Normal (Normal)
--- NOTE | 2020-10-06 19:37 | ED.RN ---
pt walked to the bathroom and pt kept leaning to the left and then was c/o feeling like he was going to pass out.pt sat on the toilet, voided and then wheelchaired back to his room.md [facility].
--- NOTE | 2020-10-06 19:46 | HP.PCM_ITS ---
Problem List (1) Pre-syncope Status: Acute (2) Type 2 diabetes mellitus Status: Chronic Qualifiers: Diabetes mellitus buttermaker continuous churn insulin use: with fpc use Diabetes mellitus complication status: with other specified complication Qualified Code(s): E11.69 - Type 2 diabetes mellitus with other specified complication; Z79.4 - roasterman (current) use of insulin (3) COPD (chronic obstructive pulmonary disease) Status: Chronic Qualifiers: COPD type: unspecified COPD Qualified Code(s): J44.9 - Chronic obstructive pulmonary disease, unspecified (4) Obesity Status: Chronic Qualifiers: Obesity classification: adult class 2 (BMI 35 - 39.9) (5) Essential (primary) hypertension Status: Chronic History of Present Illness Date of Admission: 10/06/20 Chief Complaint: Dizziness, recurrent falls ongoing for about 1 week. The patient is a 70 year old M with past medical history of hypertension, COPD, on chronic 2 L of oxygen, asthma, history of CVA who comes in with complaints of dizziness and recurrent falls ongoing for about 1 week. Patient admits to having nausea and vomiting. He vomited once a few days ago. He feels very dizzy when he gets up. He has had a couple of falls; about 3 or 4 in the past 1 week. He denied any syncopal episode. He admits to feeling like he is going to pass out on each of those episodes. He denied any diarrhea or abdominal pain no chest pain or palpitations or leg swelling or orthopnea or PND. He denied any sick contacts. He lives with his . Vitals in the ED was temperature of 97.9F, heart rate 74, blood pressure 150/81, respiratory 20, SPO2 was 91% on room air. His orthostatic vitals were positive His CBCD was unremarkable. His CMP showed bicarb of 34, BUN 21, creatinine 1.43 which is close to his baseline. His lactic acid was 2.0. Phosphorus was 2.9. UA was unremarkable. COVID-19 rapid antigen test was negative. Admitting chest x-ray was unremarkable. 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) Essential (primary) hypertension (Chronic) Hyperlipidemia (Chronic) Medical History: Medical History (Last Reviewed 12/09/19 @ 08:06 by Kala Osei) Tobacco dependence in remission (Chronic) F17.201 Occlusion and stenosis of right carotid artery (Chronic) I65.21 CVA (cerebral vascular accident) (Chronic) I63.9 PVD (peripheral vascular disease) (Chronic) I73.9 Type 2 diabetes mellitus (Chronic) E11.9 COPD (chronic obstructive pulmonary disease) (Chronic) J44.9 Obesity (Chronic) E66.9 Atherosclerotic heart disease [place] coronary artery w/angina pectoris (Chronic) I25.119 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) I25.709 Essential (primary) hypertension (Chronic) I10 Hyperlipidemia (Chronic) E78.5 Allergies amlodipine Allergy (Verified 10/06/20 16:30) dyspnea, itching atorvastatin calcium [From Lipitor] Allergy (Verified 10/06/20 16:30) Other lovastatin [From Advicor] Allergy (Verified 10/06/20 16:30) Rash niacin [From Advicor] Allergy (Verified 10/06/20 16:30) Rash rosuvastatin calcium [From Crestor] Allergy (Verified 10/06/20 16:30) Rash Xmizccg-Nox-Xzg Reductase Inhibitor Allergy (Verified 10/06/20 16:30) Hives sodium pentothal Allergy (Uncoded 10/06/20 16:30) Other sister had reaction/ pt states was tested and also has reaction Home Medications: Ambulatory Orders Medication Instructions Recorded Glimepiride [Amaryl] 4 mg PO DAILY 12/05/14 Levothyroxine [Synthroid] 75 mcg PO DAILY 12/05/14 Tiotropium [place] [Spiriva 18 MCG] 1 puff INHALATION DAILY 12/05/14 metFORMIN HCl [Glucophage] 850 mg PO BIDCM 12/05/14 Aspirin [Aspirin, Baby] 81 mg PO DAILY@0800 05/05/15 Albuterol Inhaler [Ventolin Hfa 2 puff INHALATION Q6H PRN PRN 05/16/15 (SP)] gemfibrozil 600 mg tablet 600 mg PO BID 11/18/17 insulin glargine 100 unit/mL (3 70 unit SC QHS ml 02/19/19 mL) subcutaneous pen insulin lispro 100 unit/mL 10 - 20 unit SC ACHS 100 Days #30 02/19/19 subcutaneous pen ml budesonide-formoterol HFA 160 2 puff INHALATION BID 10/23/19 mcg-4.5 mcg/actuation aerosol inhaler isosorbide mononitrate 30 mg 30 mg PO BID #60 tab 10/23/19 tablet,extended release 24 hr omeprazole 40 mg capsule,delayed 40 mg PO DAILY #90 cap 10/23/19 release sitagliptin 100 mg tablet 100 mg PO DAILY tab 10/23/19 ranolazine 500 mg tablet,extended 500 mg PO BID #180 tab 12/17/19 release,12 hr clopidogrel 75 mg tablet 75 mg PO DAILY #90 tab 03/11/20 furosemide 40 mg tablet 40 mg PO DAILY #90 tab 04/25/20 metoprolol tartrate 25 mg tablet 12.5 mg PO BID #90 tab 06/17/20 nitroglycerin 0.4 mg sublingual 0.4 mg SUBLINGUAL Q5-15M PRN #25 06/17/20 tablet tab Surgical History: Surgical History (Last Updated 12/09/19 @ 08:09 by Kala Osei) Hx of colonoscopy (Acute) Z98.890 11/03/2019 History of left heart catheterization (Resolved) Onset Date: 03/06/19 Z98.890 Severe [place] vessel disease as well as disease of a sequential saphenous vein graft. No significant outflow is noted. Would recommend medical therapy. History of coronary artery stent placement (Resolved) Onset Date: 11/13/11 Z95.5 OCL-XFE-Bjx-Distal Cx w/ 4.0 x 16 mm and 4.0 x 8 mm Promus Element 11/13/2011 H/O coronary artery bypass surgery (Resolved) Onset Date: 06/21/03 Z95.1 CABG X4 HUFF to LAD, Sequential SVG to D1 & LCx & SVG to RCA 06/21/2003 Hx of cataract surgery (Resolved) Z98.49 Surgical History: cataract, coronary bypass surgery, - - Status post left heart cath, status post carotid endarterectomy Psychiatric History: No pertinent psych hx Lives: Spouse/ Significant Other Smoking Status: Former smoker Tobacco Use: Non-smoker Alcohol: Occasional Drugs: None - *Family History Paternal Family History: Family History (Last Reviewed 12/09/19 @ 08:06 by Kala Osei) Grandmother Cancer Father FH: brain aneurysm CAD (coronary artery disease) Mother Diabetes Brother CAD (coronary artery disease) History Items: Heart Disease, Stroke - Brain aneurysm Maternal Family History: Family History (Last Reviewed 12/09/19 @ 08:06 by Kala Osei) Grandmother Cancer Father FH: brain aneurysm CAD (coronary artery disease) Mother Diabetes Brother CAD (coronary artery disease) History Items: Diabetes Review of Systems Constitutional: Reports: Malaise, Weakness, Fatigue. Denies: Anorexia, Chills, Fever, Weight Change Eyes: Denies: Blurred vision, Cataracts, Conjunctivae Inflammation, Pain, Redness, Vision Change HEENT: Denies: Difficulty Hearing, Difficulty Swallowing, Head Aches, Hearing Changes, Sinus Congestion, Sinus Drainage Cardiovascular: Reports: Light Headedness. Denies: Chest Pain, Claudication, Orthopnea, Palpitations, Paroxysmal Noc. Dyspnea, Syncope Respiratory: Denies: Cough, Hemoptysis, Shortness of breath at rest, Shortness of breath upon exertion, Sputum production Gastrointestinal: Denies: Abdominal Pain, Hematemesis, Hematochezia, Nausea, Vomiting Genitourinary: Denies: Dysuria, Frequency, Incontinence, Nocturia Musculoskeletal: Denies: Joint Pain, Joint stiffness, Joint swelling, Joint Tenderness Skin: Denies: Pruritis, Rash, Wounds Neurological: Denies: Difficulty swallowing, Focal weakness, Numbness, Tingling Psychiatric: Denies: Anxiety, Depression, Homicidal Ideations, Suicidal Ideations Hematologic/ Lymphatic: Denies: Easy Bruising, Easy Bleeding VTE Information - Inpt Only VTE Present on Admission: No VTE Pharm Prophylaxis ordered?: Yes Patient Problems: Active and Suspected Problems (Last Reviewed 12/09/19 @ 08:06 by Kala Osei) Generalized weakness (Acute) - Physical Exam Vitals/I&O's: Vital Signs Temp Pulse Resp BP Pulse Ox 97 F L 74 18 169/116 H 99 10/06/20 19:00 10/06/20 19:00 10/06/20 19:00 10/06/20 19:00 10/06/20 19:00 Oxygen Flow Rate (L/min) 3 Oxygen Delivery Method Nasal Cannula Weight: 112.945 kg Body Mass Index (BMI) 35.2 Finger Stick Blood Glucose 118 Intake and Output for Last 24 Hours 10/04/20 10/05/20 10/06/20 23:59 23:59 23:59 Intake Total 500 / 500 Balance 500 / 500 General: Alert, Oriented x3, Cooperative, No apparent distress, - - Obese HEENT: Atraumatic, PERRLA, EOMI, Normocephalic Oral: Moist Mucosa Neck: Supple Lungs: Clear to auscultation, Normal air movement Cardiovascular: Regular rate, Regular Rhythm, Normal S1, Normal S2, No murmurs Abdomen: Bowel Sounds Present, Soft, Non Tender, Non-Distended, No Hepato- splenomegaly Extremities: No edema Skin: No rashes Musculoskeletal: No Tenderness to Palpation of Joints or Extremities Lymphatic: No Cervical, Supraclavicular, or Inguinal Adenopathy Neurological: Cranial nerves II-XII grossly intact, Neuro grossly intact Psych/Mental Status: Normal Affect, Appropriate Microbiology Past 72 Hours 10/06/20 16:45 Mucosa - Nose SARS-CoV-2 Antigen (Rapid) - Final Laboratory Results 10/06/20 16:20: WBC 7.3, RBC 4.78, Hgb 14.3, Hct 45.5, MCV 95.2 H, MCH 29.9, MCHC 31.4 L, RDW Std Deviation 43.8, RDW Coeff of Aliza 12.4, Plt Count 285, MPV 11.2, Immature Gran % (Auto) 0.600, Neut % (Auto) 76.3 H, Lymph % (Auto) 14.2 L, Scurry % (Auto) 6.9, Eos % (Auto) 1.4, Baso % (Auto) 0.6, Absolute Neuts (auto) 5.6, Absolute Lymphs (auto) 1.03, Nucleated RBC % 0 10/06/20 16:20: PT 13.0, INR 1.0 10/06/20 16:20: Sodium 137, Potassium 4.4, Chloride 100, Carbon Dioxide 34.0 H, Anion Gap 3 L, BUN 21 H, Creatinine 1.43 H, Estim Creat Clear Calc 50.34, Est GFR (MDRD) Af Amer 63, Est GFR (MDRD) Non-Af 52 L, BUN/Creatinine Ratio 14.7, Glucose 234 H, Calcium 9.0, Total Bilirubin 0.30, AST 16, ALT 32, Alkaline Phosphatase 63, Troponin I < 0.015, Total Protein 7.7, Albumin 3.9, Globulin 3.8, Albumin/Globulin Ratio 1.0 10/06/20 16:20: Lactic Acid 2.0 10/06/20 17:43: Urine Color Yellow, Urine Clarity Clear, Urine pH 5.0, Ur Specific [place] 1.020, Urine Protein Negative, Urine Glucose (UA) Normal, Urine Ketones 5 H, Urine Occult Blood Negative, Urine Nitrite Negative, Urine Bilirub in Negative, Urine Urobilinogen Normal, Ur Leukocyte Esterase Negative, Urine RBC 0 SEEN, Urine WBC 0 SEEN, Ur Squamous Epith Cells 0 SEEN, Urine Bacteria 0 SEEN, Urine Mucus 0 SEEN Assessment/Plan All Active Problems (Last Reviewed 12/09/19 @ 08:06 by Kala Osei) Generalized weakness (Acute) Pre-syncope (Acute) Hx of colonoscopy (Acute) History of left heart catheterization (Resolved 03/06/19) History of coronary artery stent placement (Resolved 11/13/11) H/O coronary artery bypass surgery (Resolved 06/21/03) History of carbon monoxide poisoning (Resolved) Hx of cataract surgery (Resolved) TIA (transient ischemic attack) (Resolved) 1. Dizziness, recurrent falls secondary to orthostatic hypotension/dehydration Patient's admitting EKG was unremarkable Home Lasix held, continue on IV fluids, recheck orthostatic vitals in a.m. PT/OT to evaluate and treat 2. Type II DM, on insulin, Amaryl, Metformin, sitagliptin Continue same, insulin sliding scale with blood glucose checks 3. CAD status post CABG, stents/status post carotid endarterectomy/hyperlipidemia Continue on aspirin, Plavix, gemfibrozil, isosorbide, ranolazine hypertension, not on medications 4. Hypothyroidism, continue levothyroxine 5. COPD with chronic respiratory failure, on 3 L home oxygen Continue on Spiriva 6. CKD stage III, creatinine is close to baseline, continue to monitor 7. DVT prophylaxis with heparin subcu 8. CODE STATUS: Full code I discussed and explained in details the various types of CODE STATUS-full code, DNR CCA, DNR CC. Patient chose full code with aggressive measures in the event of cardiopulmonary arrest. Time spent discussing CODE STATUS 16 minutes Inpatient E&M: 14361 Init Hosp L3 Procedures: 92762 Advncd Care Plan 30 Min
[2020-10-06 20:15] LABS: Phosphorus 2.9 mg/dL (2.5-4.9)
[2020-10-06 20:37] LABS: Reflex Lactate? Y
[2020-10-06 21:40] LABS: Lactic Acid 1.6 mmol/L (0.4-1.9)
[2020-10-06] MEDS: 0.9% Normal Saline 1,000 ML 150 ML IV (22:07)
[2020-10-06 23:05] LABS: Bedside Glucose 87 mg/dL (70-110)
[2020-10-07] VITALS (13 sets, daily range): BP systolic 120–138; BP diastolic 56–79; PULSE 69–92; RESP 17–22; TEMP 36.3–36.9; O2SAT 94–97
[2020-10-07] MEDS: Mag Hydrox/Al Hydrox/Simeth 30 ML UDC PO (05:08)
[2020-10-07] MEDS: 0.9% Normal Saline 1,000 ML 150 ML IV (05:22)
[2020-10-07] MEDS: Heparin Injection (Vial) 5,000 UNIT/ML VIAL 5000 UNIT SC ×3 (05:22→21:33)
[2020-10-07] MEDS: Levothyroxine 75 MCG Tablet PO (05:23)
--- NOTE | 2020-10-07 05:24 | EKG12_ITS ---
Test Reason : CP Blood Pressure : / mmHG Vent. Rate : 077 BPM Atrial Rate : 077 BPM P-R Int : 194 ms QRS Dur : 092 ms QT Int : 378 ms P-R-T Axes : 018 052 089 degrees QTc Int : 427 ms Normal sinus rhythm Nonspecific ST and T wave abnormality Confirmed by LENA HUGGINS, JAILYN ([id number]), website/blog editor IVIS TOLENTINO ([id number]) on 10/10/2020 9:55:24 AM Referred By: MEI Confirmed By:JAILYN PAREDES MD
[2020-10-07 05:58] LABS: Absolute Lymphocyte Count 1.34 X10^3/uL (0.83-4.51); Absolute Neutrophil Count 5.2 X10^3/uL (2.0-7.7); Basophil# 0.04 X10^3/uL; Basophil% 0.5 % (0-1); Eosinophil# 0.23 X10^3/uL; Hematocrit 42.6 % (40-54); Hemoglobin 13.5 g/dL (13.0-16.5); Lymphocyte # 1.34 X10^3/ul (4.0); Lymphocyte % 17.7 % (19-41); Mean Corp Hgb Conc 31.7 g/dL (32-36); Mean Corpuscular Hgb 30.3 pg (27.0-32.0); Mean Corpuscular Volume 95.5 fL (80-94); Mean Platelet Vol. 11.3 fl (6.2-12.0); Monocyte# 0.69 X10^3/uL; Monocyte% 9.1 % (0-10); NRBC Flagged by Analyzer 0 % (0-5); Neutrophil # 5.24 X10^3/uL (2.7-7.7); Platelet Count 263 K/mm3 (150-450); RBC Distribution Width CV 12.3 % (11.6-14.6); RBC Distribution Width SD 42.5 fl (35.1-43.9); Red Blood Count 4.46 M/mm3 (4.6-6.2); White Blood Count 7.6 K/mm3 (4.4-11.0)
[2020-10-07 06:28] LABS: AST(SGOT) 20 U/L (15-37); Alanine Aminotransfer ALT/SGPT 29 U/L (16-61); Albumin, Serum 3.3 g/dL (3.2-5.0); Alkaline Phosphatase 57 U/L (45-117); Anion Gap 4 (5-15); BUN 17 mg/dL (7-18); BUN/Creat Ratio 15.7 RATIO (10-20); Calcium,Total 8.2 mg/dL (8.5-10.1); Chloride 105 mmol/L (98-107); Creatinine, Serum 1.08 mg/dL (0.70-1.30); EST Glomerular Filtration Rate 72 mL/min (>60); Est Glom Filt Rate - Afr Amer 87 mL/min (>60); Estimated Creatinine Clearance 66.65 ml/min; Globulin 3.4 g/dL (2.2-4.2); Glucose 64 mg/dL (74-106); Phosphorus 3.1 mg/dL (2.5-4.9); Potassium 3.6 mmol/L (3.5-5.1); Protein, Total 6.7 g/dL (6.4-8.2); Sodium Level 140 mmol/L (136-145)
[2020-10-07] MEDS: Gemfibrozil 600 MG Tablet PO ×2 (06:31→16:39)
[2020-10-07] MEDS: Budesonide Respules 0.5 MG/2 ML AMPUL.NEB. INHALATION ×2 (07:20→19:04)
[2020-10-07] MEDS: Ipratropium/Albuterol Sulfate 3 ML AMPUL.NEB INHALATION ×3 (07:20→19:04)
[2020-10-07 08:33] LABS: Bedside Glucose 95 mg/dL (70-110)
[2020-10-07] MEDS: Metoprolol Tartrate 25 MG Tablet 12.5 MG PO ×2 (09:03→21:27)
[2020-10-07] MEDS: Ranolazine 500 MG Tablet PO ×2 (09:03→21:28)
[2020-10-07] MEDS: Aspirin 81 MG TAB.CHEW PO (09:04)
[2020-10-07] MEDS: Isosorbide Mononitrate 30 MG Tablet PO ×2 (09:04→21:28)
[2020-10-07] MEDS: Glimepiride 4 MG Tablet PO (09:04)
[2020-10-07] MEDS: Clopidogrel Bisulfate 75 MG Tablet PO (09:04)
[2020-10-07] MEDS: LINAGLIPTIN 5 MG TABLET PO (09:04)
[2020-10-07] MEDS: Pantoprazole Sodium 40 MG Tablet PO (09:04)
[2020-10-07] MEDS: metFORMIN HCl 850 MG Tablet PO ×2 (09:05→16:39)
--- NOTE | 2020-10-07 09:42 | NURSING ---
Pt c/o chest pain. pt reports this morning that the mylanta worked for what was 8 out of 10 pain this morning but now is 2 out of 10. Pt made aware that mylanta is not due yet. pt points to epigastric area states that where CP is and radiates to his back. When pt sat up to the edge of the bed, pt stated he was not dizzy but also his chest pain had resolved. This nurse decided to wait to give nitro and instead give his scheduled BP/Heart meds and Protonix to see if that helped. Dr. Catah aware.
[2020-10-07] MEDS: Insulin Lispro 100 UNIT/ML INSULN.PEN SC ×3 (11:41→21:30)
[2020-10-07 12:16] LABS: Bedside Glucose 263 mg/dL (70-110)
--- NOTE | 2020-10-07 12:40 | MRI_ITS ---
STUDY: MRI BRAIN WITHOUT CONTRAST REASON FOR EXAM: Male, 70 years old. UNSTEADY GAIT, WEAKNESS, VERTIGO TECHNIQUE: Standardized multiplanar fat and water weighted pulse sequences were obtained. COMPARISON: 12/06/2014 FINDINGS: There is mild cerebral atrophy with widening of the extra-axial spaces and ventricular dilatation. There are a limited number of small white matter hyperintensities, distributed throughout the deep white matter tracts of the cerebral hemispheres, consistent with mild chronic white matter ischemic changes. There is no evidence for recent intracranial ischemia or other cause of cytotoxic edema on diffusion weighted imaging (DWI). Normal T2* images of the brain without demonstrated susceptibility artifact. There is no demonstrated hemosiderin stain. Focal encephalomalacia and gliosis within the left occipital lobe consistent with a chronic infarct. Normal bilateral basal ganglia. Normal thalami. There is no extra-axial fluid accumulation. Normal flow voids within the major intracranial circulation suggesting patency by spin echo criteria. Normal sella turcica, pituitary gland, infundibular stalk, optic chiasm and hypothalamus. Normal tectal plate and pineal gland. Normal midbrain, elizabeth and medulla. Normal cerebellum. Normal basal cisterns. Normal bilateral temporal bones. Normal bilateral internal auditory canals. There are bilateral ocular lens implants with otherwise normal intraorbital contents. Normal visualized paranasal sinuses. Normal calvarium and skull base. Normal visualized soft tissue structures. Normal visualized upper cervical spine. MRI/Brain without Contrast IMPRESSION: Involutional changes of the brain, as described above. No acute infarct. Electronically Signed: Joseph Dodd MD at 16:10 EST Tel , Service support ,
--- NOTE | 2020-10-07 12:41 | PCM.PROGNOTE ---
Patient Problems: Active and Suspected Problems (Last Reviewed 12/09/19 @ 08:06 by Kala Osei) Generalized weakness (Acute) Pre-syncope (Acute) Subjective: Chief complaint: Follow-up after admission for dizziness/imbalance/possible ataxia and reported presyncope. Patient seen and examined. No acute events overnight. He was taken for a walk this morning and he reported that he has been unsteady, falling to the right side and he reported that he was dizzy and nauseated. Nursing staff confirmed that patient was nauseated when he walking. He denied worsening shortness of breath or chest pain. Currently, his vital signs are stable, pulse ox is 94% on 3 L which is his baseline at home. - Physical Exam Vitals/I&O's: Vital Signs Temp Pulse Resp BP Pulse Ox 98.2 F 82 18 123/56 H 94 10/07/20 09:00 10/07/20 09:03 10/07/20 09:00 10/07/20 09:03 10/07/20 09:00 Oxygen Flow Rate (L/min) 3 Oxygen Delivery Method Nasal Cannula Weight: 243 lb 9.773 oz Body Mass Index (BMI) 34.9 Finger Stick Blood Glucose 118 Intake and Output for Last 24 Hours 10/05/20 10/06/20 10/07/20 23:59 23:59 23:59 Intake Total 1000 / 1200 2042.5 / 2042.5 Output Total 500 / 500 Balance 1000 / 1200 1542.5 / 1542.5 General: Alert, Oriented x3, Cooperative, - - Mildly short of breath. HEENT: Atraumatic, PERRLA, EOMI, Normocephalic Oral: Moist Mucosa, No Gingival or Mucosal Lesions/ Ulcerations Neck: Supple, No JVD, Negative Carotid Bruits, Trachea Midline, Thyroid Normal Size and Texture Lungs: Clear to auscultation, Normal air movement, No rhonchi, No wheeze, No rales, Diminished Cardiovascular: Regular rate, Regular Rhythm, Normal S1, Normal S2, PMI Normal Abdomen: Bowel Sounds Present, Soft, Non Tender, Non-Distended, No Hepato-splenomegaly, Obese Extremities: No clubbing, No cyanosis, No edema Skin: No rashes, No breakdown Lymphatic: No Cervical, Supraclavicular, or Inguinal Adenopathy Neurological: Cranial nerves II-XII grossly intact, Motor Exam 5/5 strength throughout Psych/Mental Status: Normal Affect, Appropriate, Alert and oriented to time, place, person, mood and affect Microbiology Past 72 Hours 10/06/20 16:45 Mucosa - Nose SARS-CoV-2 Antigen (Rapid) - Final Laboratory Results 10/06/20 16:20: WBC 7.3, RBC 4.78, Hgb 14.3, Hct 45.5, MCV 95.2 H, MCH 29.9, MCHC 31.4 L, RDW Std Deviation 43.8, RDW Coeff of Aliza 12.4, Plt Count 285, MPV 11.2, Immature Gran % (Auto) 0.600, Neut % (Auto) 76.3 H, Lymph % (Auto) 14.2 L, Lamar % (Auto) 6.9, Eos % (Auto) 1.4, Baso % (Auto) 0.6, Absolute Neuts (auto) 5.6, Absolute Lymphs (auto) 1.03, Nucleated RBC % 0 10/06/20 16:20: PT 13.0, INR 1.0 10/06/20 16:20: Sodium 137, Potassium 4.4, Chloride 100, Carbon Dioxide 34.0 H, Anion Gap 3 L, BUN 21 H, Creatinine 1.43 H, Estim Creat Clear Calc 50.34, Est GFR (MDRD) Af Amer 63, Est GFR (MDRD) Non-Af 52 L, BUN/Creatinine Ratio 14.7, Glucose 234 H, Calcium 9.0, Total Bilirubin 0.30, AST 16, ALT 32, Alkaline Phosphatase 63, Troponin I < 0.015, Total Protein 7.7, Albumin 3.9, Globulin 3.8, Albumin/Globulin Ratio 1.0 10/06/20 16:20: Lactic Acid 2.0 10/06/20 16:20: Phosphorus 2.9 10/06/20 17:43: Urine Color Yellow, Urine Clarity Clear, Urine pH 5.0, Ur Specific [place] 1.020, Urine Protein Negative, Urine Glucose (UA) Normal, Urine Ketones 5 H, Urine Occult Blood Negative, Urine Nitrite Negative, Urine Bilirubin Negative, Urine Urobilinogen Normal, Ur Leukocyte Esterase Negative, Urine RBC 0 SEEN, Urine WBC 0 SEEN, Ur Squamous Epith Cells 0 SEEN, Urine Bacteria 0 SEEN, Urine Mucus 0 SEEN 10/06/20 21:10: Lactic Acid 1.6 10/06/20 22:27: POC Glucose 87 10/06/20 23:24: Troponin I < 0.015 10/07/20 02:10: Troponin I < 0.015 10/07/20 05:15: WBC 7.6, RBC 4.46 L, Hgb 13.5, Hct 42.6, MCV 95.5 H, MCH 30.3, MCHC 31.7 L, RDW Std Deviation 42.5, RDW Coeff of Aliza 12.3, Plt Count 263, MPV 11.3, Immature Gran % (Auto) 0.700, Neut % (Auto) 69.0, Lymph % (Auto) 17.7 L, Lamar % (Auto) 9.1, Eos % (Auto) 3.0, Baso % (Auto) 0.5, Absolute Neuts (auto) 5.2, Absolute Lymphs (auto) 1.34, Nucleated RBC % 0 10/07/20 05:15: Sodium 140, Potassium 3.6, Chloride 105, Carbon Dioxide 31.0, Anion Gap 4 L, BUN 17, Creatinine 1.08, Estim Creat Clear Calc 66.65, Est GFR (MDRD) Af Amer 87, Est GFR (MDRD) Non-Af 72, BUN/Creatinine Ratio 15.7, Glucose 64 L, Calcium 8.2 L, Phosphorus 3.1, Total Bilirubin 0.30, AST 20, ALT 29, Alkaline Phosphatase 57, Troponin I 0.020, Total Protein 6.7, Albumin 3.3, Globulin 3.4, Albumin/Globulin Ratio 1.0 10/07/20 06:24: POC Glucose 95 10/07/20 11:36: POC Glucose 263 H Current Medications Acetaminophen (Acetaminophen 325 Mg Tablet) 650 mg PO Q6H PRN PRN PRN Reason: Pain Score 1-10/Temp > 100.7 F Al Hydroxide/Mg Hydroxide (Mag Hydrox/Al Hydrox/Simeth 30 Ml Udc) 30 ml PO Q6H PRN PRN PRN Reason: Gastric Burning Last Admin: 10/07/20 05:08 Dose: 30 ml Documented by: Albuterol Sulfate (Albuterol 2.5 Mg/3 Ml Vial.Neb.) 2.5 mg INHALATION Q2H PRN PRN PRN Reason: Shortness of Breath/Wheezing Albuterol/Ipratropium (Ipratropium/Albuterol Sulfate 3 Ml Ampul.Neb) 3 ml INHALATION Q6HWA.RT [facility] Last Admin: 10/07/20 07:20 Dose: 3 ml Documented by: Aspirin (Aspirin 81 Mg Tab.Chew) 81 mg PO DAILY@0800 [facility] Last Admin: 10/07/20 09:04 Dose: 81 mg Documented by: Budesonide (Budesonide Respules 0.5 Mg/2 Ml Ampul.Neb.) 0.5 mg INHALATION Q12H.RT [facility] Last Admin: 10/07/20 07:20 Dose: 0.5 mg Documented by: Clopidogrel Bisulfate (Clopidogrel Bisulfate 75 Mg Tablet) 75 mg PO DAILY [facility] Last Admin: 10/07/20 09:04 Dose: 75 mg Documented by: Dextrose (Dextrose 50%-Water 25 Gm/50 Ml Disp.Syrin) 0 gm IV X1 PRN; Protocol PRN Reason: Hypoglycemia Gemfibrozil (Gemfibrozil 600 Mg Tablet) 600 mg PO BIDAC [facility] Last Admin: 10/07/20 06:31 Dose: 600 mg Documented by: Glimepiride (Glimepiride 4 Mg Tablet) 4 mg PO DAILYCM [facility] Last Admin: 10/07/20 09:04 Dose: 4 mg Documented by: Glucagon (Glucagon 1 Mg/Ml Syringe) 1 mg IM .X1 PRN PRN Reason: Hypoglycemia Heparin Sodium (Porcine) (Heparin Injection (Vial) 5,000 Unit/Ml Vial) 5,000 unit SC Q8 [facility] Last Admin: 10/07/20 05:22 Dose: 5,000 unit Documented by: Insulin Glargine (Insulin Glargine 100 Units/Ml Pen) 70 units SC QHS [facility] Insulin Human Lispro (Insulin Lispro 100 Unit/Ml Insuln.Pen) 0 unit SC ACHS [facility]; Protocol Last Admin: 10/07/20 11:41 Dose: 2 units Documented by: Isosorbide Mononitrate (Isosorbide Mononitrate 30 Mg Tablet) 30 mg PO BID [facility] Last Admin: 10/07/20 09:04 Dose: 30 mg Documented by: Levothyroxine Sodium (Levothyroxine 75 Mcg Tablet) 75 mcg PO DAILY@0600 [facility] Last Admin: 10/07/20 05:23 Dose: 75 mcg Documented by: Linagliptin (Linagliptin 5 Mg Tablet) 5 mg PO DAILY [facility] Last Admin: 10/07/20 09:04 Dose: 5 mg Documented by: Magnesium Hydroxide (Magnesium Hydroxide 30 Ml Udc) 30 ml PO DAILY PRN PRN PRN Reason: Constipation Metformin [facility] ([facility]cl 850 Mg Tablet) [facility] Last Admin: 10/07/20 09:05 Dose: 850 mg Documented by: Metoprolol Tartrate (Metoprolol Tartrate 25 Mg Tablet) 12.5 mg PO BID [facility] Last Admin: 10/07/20 09:03 Dose: 12.5 mg Documented by: Nitroglycerin (Nitroglycerin (Inpatient Use) 0.4 Mg Tab.Subl) 0.4 mg SUBLINGUAL Q5M PRN PRN Reason: chest pain Ondansetron HCl (Ondansetron 4 Mg/2 Ml Vial) 4 mg IV Q8H PRN PRN PRN Reason: NAUSEA/VOMITING Pantoprazole Sodium (Pantoprazole Sodium 40 Mg Tablet) 40 mg PO DAILY [facility] Last Admin: 10/07/20 09:04 Dose: 40 mg Documented by: Ranolazine (Ranolazine 500 Mg Tablet) 500 mg PO BID [facility] Last Admin: 10/07/20 09:03 Dose: 500 mg Documented by: Sodium Chloride (0.9% Saline Lock 10 Ml Syringe) 10 - 40 ml IV UD PRN PRN Reason: SALINE FLUSH Throat Lozenges (Benzocaine/Menthol 1 Lozenge) 1 lozenge MUCOUS MEM Q2H PRN PRN PRN Reason: SORE THROAT Medical Necessity - Tobacco Use Smoking Status: Former smoker Tobacco Use: Non-smoker Assessment/Plan All Active Problems (Last Reviewed 12/09/19 @ 08:06 by Kala Osei) Generalized weakness (Acute) Pre-syncope (Acute) This is a 70 years old male patient presented to the emergency room because of weakness, dizziness and questionable presyncope, today reported that he has been dizzy and tending to fall to the right side and was admitted for evaluation. #1 imbalance/probable ataxia: Patient reported that he has been unsteady, tending to fall to the right side. He denied any other focal symptoms. Denied slurred speech or blurred vision. No focal arm or leg weakness. Currently, his vital signs are stable. His repeat routine blood work from today was unremarkable. EKG was unremarkable. Plan: MRI brain, PT OT evaluation and treatment. #2 questionable presyncope: No chest pain or shortness of breath, no loss of consciousness. Vital signs have been stable. Orthostatic vitals were stable as well. EKG revealed normal sinus rhythm without evidence of acute ischemic changes or cardiac arrhythmias. Maybe patient was dehydrated as his creatinine admission was 1.4 which improved down to 1.08 today after IV fluids. Cardiac enzymes are negative. COVID-19 antigen was negative. Plan as above, MRI brain. #3 COPD/chronic respiratory failure: Stable at baseline. He is on home oxygen at 3 L. Currently, he is on 3 L. Continue albuterol as needed, Pulmicort twice daily and DuoNeb every 6 hours, oxygen by nasal cannula. #4 CAD status post CABG and stents: EKG was unremarkable. Troponin was negative. Continue aspirin, Plavix, nitrate, Ranexa and metoprolol. #5 hypertension: Blood pressure stable, continue nitrate and metoprolol. #6 peripheral vascular disease: Stable, continue aspirin, Plavix. #7 hyperlipidemia: Continue statins. #8 hypothyroidism: Continue levothyroxine. #9 DVT prophylaxis: Subcu heparin. This note was generated with [employer] dictation software. It may contain incorrect words, spelling, and punctuation that were not noted in checking the note before signing. Inpatient E&M: 37041 Subs Hosp L2
--- NOTE | 2020-10-07 13:00 | CASEMGMT ---
RN CM Face to Face with patient for initial transition planning/care coordination assessment. RN CM introduced self and role at [facility]. Patient lying in bed, alert and oriented. Patient willing to participate in assessment and is able to answer all questions appropriately. Care providers, pharmacy, and demographics verified. Patient wishes to discharge home, denies need for home health at this time. Patient states he has no further needs or concerns at this time. CM to follow for discharge planning needs that may arise. PCP: Davi Specialists: Sandra, head batcher; Nancy patient care technician Preferred Pharmacy: [facility] Insurance: [facility] Prescription Benefit: yes Living Will/HPOA: none LNOK: Living Arrangements: Patient lives with in a single story home with no steps to enter. Patient states he was independent at home. Transportation: self, daughter, son DME/HHC: Patient states he has shower chair, cane, walker, oxygen 3 lpm with portability, CPAP at home. Patient denies previous HHC. Patient has been to [facility] in the past and is interested in outpatient therapy at discharge. CM to assist patient with obtaining script for outpatient therapy. Disposition Plan: Patient to discharge home with family support and follow-up plans in place. Carly [place], RN, CM
--- NOTE | 2020-10-07 14:19 | CASEMGMT ---
NGHIA WALLACE NOTE: Dr Harden made aware pt is interested in OP therapy. He states pt is not being discharged today and will sign script for OP therapy tomorrow. Script placed on chart for OP PT/OT eval and treat for MD to sign. Staff to give script to pt prior to discharge. Pt made aware. Thelma COLORADO RN CM
--- NOTE | 2020-10-07 14:54 | NURSING ---
Off the floor for MRI
[2020-10-07 17:11] LABS: Bedside Glucose 279 mg/dL (70-110)
[2020-10-07 21:45] LABS: Bedside Glucose 244 mg/dL (70-110)
--- NOTE | 2020-10-08 00:35 | PCS.PANDOC ---
PANDEMIC DOCUMENTATION INITIATED: Date: 10/06/20 Time: 2129
[2020-10-08 02:46] VITALS: BP 123/89; PULSE 77; RESP 18; TEMP 36.9; O2SAT 96
[2020-10-08 03:00] VITALS: PULSE 75
[2020-10-08] MEDS: Gemfibrozil 600 MG Tablet PO (07:00)
[2020-10-08] MEDS: Heparin Injection (Vial) 5,000 UNIT/ML VIAL 5000 UNIT SC (07:00)
[2020-10-08] MEDS: Levothyroxine 75 MCG Tablet PO (07:00)
--- NOTE | 2020-10-08 07:08 | NURSING ---
Addendum entered by Jose Francisco Samson 10/08/20 07:36: pts blood sugar at this time is 104 Addendum entered by Jose Francisco Samson 10/08/20 07:23: pt states he feels better at this time, in regards to blood sugar Original Note: this RN went to get pts blood sugar, blood sugar was 62, pt stated he felt shaky and clammy. pt is A&Ox3, and can swallow food. this RN gave orange juice x2 containers, zachary doones, and PB with saltines. pt instructed to order breakfast now, and pt did.
[2020-10-08 07:10] LABS: Bedside Glucose 62 mg/dL (70-110)
[2020-10-08 07:11] VITALS: PULSE 85; RESP 20; O2SAT 94
[2020-10-08] MEDS: Budesonide Respules 0.5 MG/2 ML AMPUL.NEB. INHALATION (07:11)
[2020-10-08] MEDS: Ipratropium/Albuterol Sulfate 3 ML AMPUL.NEB INHALATION (07:11)
[2020-10-08 07:41] LABS: Bedside Glucose 104 mg/dL (70-110)
[2020-10-08 08:17] VITALS: BP 154/98; PULSE 87; RESP 20; TEMP 37.2; O2SAT 93
[2020-10-08 08:19] VITALS: PULSE 87
[2020-10-08] MEDS: LINAGLIPTIN 5 MG TABLET PO (08:19)
[2020-10-08] MEDS: Metoprolol Tartrate 25 MG Tablet 12.5 MG PO (08:19)
[2020-10-08] MEDS: metFORMIN HCl 850 MG Tablet PO (08:19)
[2020-10-08] MEDS: Isosorbide Mononitrate 30 MG Tablet PO (08:19)
[2020-10-08] MEDS: Ranolazine 500 MG Tablet PO (08:19)
[2020-10-08] MEDS: Glimepiride 4 MG Tablet PO (08:19)
[2020-10-08] MEDS: Clopidogrel Bisulfate 75 MG Tablet PO (08:20)
[2020-10-08] MEDS: Pantoprazole Sodium 40 MG Tablet PO (08:20)
[2020-10-08] MEDS: Aspirin 81 MG TAB.CHEW PO (08:20)
--- NOTE | 2020-10-08 08:55 | PCM.DC ---
- Discharge Diagnoses Current Active Problems: Current Active and Chronic Problems (Last Reviewed 12/09/19 @ 08:06 by Kala Osei) Generalized weakness (Acute) Pre-syncope (Acute) Type 2 diabetes mellitus (Chronic) COPD (chronic obstructive pulmonary disease) (Chronic) Obesity (Chronic) Essential (primary) hypertension (Chronic) You will use the following diet at home:: Calorie/Carbohydrate Controlled (specify 1200, 1400, etc) - 1800 max., Cardiac Your food should be the consistency of: Regular Discharge Activity: Return to Normal Activity Weight Bearing Status: Weight bearing as tolerated Call your doctor if you observe: Fever of 101 or Higher, Shortness of breath, Dizziness, Fainting spells, Chest pain, Increased palpitations (irregular heartbeat), Uncontrolled pain Allergies/Adverse Reactions: Allergies amlodipine Allergy (Verified 10/06/20 16:30) dyspnea, itching atorvastatin calcium [From Lipitor] Allergy (Verified 10/06/20 16:30) Other lovastatin [From Advicor] Allergy (Verified 10/06/20 16:30) Rash niacin [From Advicor] Allergy (Verified 10/06/20 16:30) Rash rosuvastatin calcium [From Crestor] Allergy (Verified 10/06/20 16:30) Rash Abooveu-Dml-Tnf Reductase Inhibitor Allergy (Verified 10/06/20 16:30) Hives sodium pentothal Allergy (Uncoded 10/06/20 16:30) Other sister had reaction/ pt states was tested and also has reaction Medications to take at Discharge Glimepiride [Amaryl] 4 mg PO DAILY 12/05/14 Levothyroxine [Synthroid] 75 mcg PO DAILY 12/05/14 Tiotropium [place] [Spiriva 18 MCG] 1 puff INHALATION DAILY 12/05/14 metFORMIN HCl [Glucophage] 850 mg PO BIDCM 12/05/14 Aspirin [Aspirin, Baby] 81 mg PO DAILY@0800 05/05/15 Albuterol Inhaler [Ventolin Hfa] 2 puff INHALATION Q6H PRN PRN 05/16/15 gemfibrozil 600 mg tablet 600 mg PO BID 11/18/17 insulin glargine 100 unit/mL (3 mL) subcutaneous pen 70 unit SC QHS ml 02/19/19 insulin lispro 100 unit/mL subcutaneous pen 10 - 20 unit SC ACHS 100 Days #30 ml 05/23/19 budesonide-formoterol HFA 160 mcg-4.5 mcg/actuation aerosol inhaler 2 puff INHALATION BID 10/23/19 isosorbide mononitrate 30 mg tablet,extended release 24 hr 30 mg PO BID #60 tab 10/23/19 omeprazole 40 mg capsule,delayed release 40 mg PO DAILY #90 cap 10/23/19 sitagliptin 100 mg tablet 100 mg PO DAILY tab 10/23/19 ranolazine 500 mg tablet,extended release,12 hr 500 mg PO BID #180 tab 12/17/19 clopidogrel 75 mg tablet 75 mg PO DAILY #90 tab 03/11/20 furosemide 40 mg tablet 40 mg PO DAILY #90 tab 04/25/20 metoprolol tartrate 25 mg tablet 12.5 mg PO BID #90 tab 06/17/20 nitroglycerin 0.4 mg sublingual tablet 0.4 mg SUBLINGUAL Q5-15M PRN #25 tab 06/17/20 Primary Care Physician: Marcell Tomlinson MD [Primary Care Provider] - Please follow up with your Primary Care Physician in: 1 week. Test Results: Test results from this visit will be discussed in further detail at your follow-up appointment, if applicable.
--- NOTE | 2020-10-08 12:35 | DS.PCM_ITS ---
Discharge Date and Diagnosis Date of Admission: 10/06/20 Date of Discharge: 10/08/20 - Primary Discharge Diagnosis Acute Problems: Active Problems (Last Reviewed 12/09/19 @ 08:06 by Kala Osei) #1 imbalance/probable ataxia, acute stroke ruled out. #2 presyncope, likely vasovagal. - Secondary Discharge Diagnosis Chronic Problems: Chronic Problems (Last Reviewed 12/09/19 @ 08:06 by Kala Osei) Tobacco dependence in remission (Chronic) Occlusion and stenosis of right carotid artery (Chronic) CVA (cerebral vascular accident) (Chronic) PVD (peripheral vascular disease) (Chronic) Type 2 diabetes mellitus (Chronic) COPD (chronic obstructive pulmonary disease) (Chronic) Obesity (Chronic) Atherosclerotic heart disease [place] coronary artery w/angina pectoris (Chronic) Atherosclerosis of coronary artery bypass graft of [place] heart with angina pectoris (Chronic) History of coronary artery stent placement (Chronic 11/13/11) [id number]-[id number]-Myy-Distal Cx w/ 4.0 x 16 mm and 4.0 x 8 mm Promus Element 11/13/2011 H/O coronary artery bypass surgery (Chronic 06/21/03) CABG X4 HUFF to LAD, Sequential SVG to D1 & LCx & SVG to RCA 06/21/2003 Essential (primary) hypertension (Chronic) Hyperlipidemia (Chronic) Hospital Course and Treatment Imaging Results: Clinical Impression(s) from Imaging Studies Chest X-Ray 10/06/20 16:39 IMPRESSION: No acute cardiopulmonary process. Electronically Signed: Brenna Almodovar MD at 16:59 EST Tel , Service support , Brain MRI 10/07/20 12:40 IMPRESSION: Involutional changes of the brain, as described above. No acute infarct. Electronically Signed: Joseph Dodd MD at 16:10 EST Tel , Service support , Operations: None Procedures: EKG Summary of Care Provided: Patient seen and examined on the day of discharge and appeared to be stable to be discharged home. He feels better, weakness improved, no more imbalance. His vitals are stable, remains on 3 L of oxygen which is his baseline at home. The patient is a 70 year old M presented to the emergency room because of profound weakness, dizziness and reported presyncope as well as imbalance. There was no specific symptoms. Patient mentioned that he has been having issues with balance, tending to fall to the right side. Initial EKG revealed normal sinus rhythm without evidence of acute ischemic changes or cardiac arrhythmias. His routine blood work was unremarkable as well as LFT. Troponin was negative. COVID-19 antigen came back negative. Chest x-ray showed no acute findings. His vital signs were stable. Pulse ox was 94% on 3 L which is his baseline at home. He denies worsening shortness of breath. Because of this imbalance and questionable ataxia, MRI brain done and showed no acute infarct or hemorrhage, no cerebellar infarct. Acute stroke ruled out. Patient discharged home in a stable medical condition, continued on his previous home medications without any changes, prescription for outpatient PT OT given, recommended follow-up with with PCP in 1 week. - Physical Exam Vitals/I&O's: Vital Signs Temp Pulse Resp BP Pulse Ox 98.9 F 87 20 H 154/98 H 93 10/08/20 08:17 10/08/20 08:19 10/08/20 08:17 10/08/20 08:17 10/08/20 08:17 Oxygen Flow Rate (L/min) 3 Oxygen Delivery Method Nasal Cannula Weight: 262 lb 2.074 oz Body Mass Index (BMI) 34.9 Finger Stick Blood Glucose 118 Intake and Output for Last 24 Hours 10/06/20 10/07/20 10/08/20 23:59 23:59 23:59 Intake Total 1000 / 1200 2932.5 / 2932.5 300 / 300 Output Total 2049 / 2049 1250 / 1250 Balance 1000 / 1200 882.5 / 882.5 -950 / -950 General: Alert, Oriented x3, Cooperative, No apparent distress HEENT: Atraumatic, PERRLA, EOMI, Normocephalic Oral: Moist Mucosa, No Gingival or Mucosal Lesions/ Ulcerations Neck: Supple, No JVD, Negative Carotid Bruits, Trachea Midline, Thyroid Normal Size and Texture Lungs: Clear to auscultation, Normal air movement, No rhonchi, No wheeze, No rales, Diminished Cardiovascular: Regular rate, Regular Rhythm, Normal S1, Normal S2, PMI Normal Abdomen: Bowel Sounds Present, Soft, Non Tender, Non-Distended, No Hepato- splenomegaly, Obese Extremities: No clubbing, No cyanosis, No edema Skin: No rashes, No breakdown Lymphatic: No Cervical, Supraclavicular, or Inguinal Adenopathy Neurological: Cranial nerves II-XII grossly intact, Neuro grossly intact Psych/Mental Status: Normal Affect, Appropriate Microbiology Past 72 Hours 10/06/20 16:45 Mucosa - Nose SARS-CoV-2 Antigen (Rapid) - Final Laboratory Results 10/07/20 16:51: POC Glucose 279 H 10/07/20 21:20: POC Glucose 244 H 10/08/20 06:48: POC Glucose 62 L 10/08/20 07:34: POC Glucose 104 Discharge Activity: Return to Normal Activity Weight Bearing Status: Weight bearing as tolerated Call your doctor if you observe: Fever of 101 or Higher, Shortness of breath, Dizziness, Fainting spells, Chest pain, Increased palpitations (irregular heartbeat), Uncontrolled pain Home Medications: Medications to take at Discharge Glimepiride [Amaryl] 4 mg PO DAILY 12/05/14 Levothyroxine [Synthroid] 75 mcg PO DAILY 12/05/14 Tiotropium [place] [Spiriva 18 MCG] 1 puff INHALATION DAILY 12/05/14 metFORMIN HCl [Glucophage] 850 mg PO BIDCM 12/05/14 Aspirin [Aspirin, Baby] 81 mg PO DAILY@0800 05/05/15 Albuterol Inhaler [Ventolin Hfa] 2 puff INHALATION Q6H PRN PRN 05/16/15 gemfibrozil 600 mg tablet 600 mg PO BID 11/18/17 insulin glargine 100 unit/mL (3 mL) subcutaneous pen 70 unit SC QHS ml 02/19/19 insulin lispro 100 unit/mL subcutaneous pen 10 - 20 unit SC ACHS 100 Days #30 ml 02/19/19 budesonide-formoterol HFA 160 mcg-4.5 mcg/actuation aerosol inhaler 2 puff INHALATION BID 10/23/19 isosorbide mononitrate 30 mg tablet,extended release 24 hr 30 mg PO BID #60 tab 10/23/19 omeprazole 40 mg capsule,delayed release 40 mg PO DAILY #90 cap 10/23/19 sitagliptin 100 mg tablet 100 mg PO DAILY tab 10/23/19 ranolazine 500 mg tablet,extended release,12 hr 500 mg PO BID #180 tab 12/17/19 clopidogrel 75 mg tablet 75 mg PO DAILY #90 tab 03/11/20 furosemide 40 mg tablet 40 mg PO DAILY #90 tab 04/25/20 metoprolol tartrate 25 mg tablet 12.5 mg PO BID #90 tab 06/17/20 nitroglycerin 0.4 mg sublingual tablet 0.4 mg SUBLINGUAL Q5-15M PRN #25 tab 06/17/20 Primary Care Physician: Marcell Tomlinson MD [Primary Care Provider] - Please follow up with your Primary Care Physician in: 1 week. Disposition: Home Minutes spent on discharge:: 26 Patient Condition:: Stable Medical Necessity - Tobacco Use Smoking Status: Former smoker Tobacco Use: Non-smoker Meaningful Use Info Meaningful Use Diagnoses (Choose all that apply): None applicable Inpatient E&M: 36655 Disch Hosp
--- NOTE | 2020-10-10 14:23 | CASEMGMT ---
NGHIA CM DC PHONE CALL DC DATE: 10/07/20 DC DISPOSITION: Home DC DIAGNOSIS: ataxia, presyncope LACE/STRATA: 08/02 F/U APPTS MADE PRIOR TO DC: NO Attempted call to patient. No answer and messaging with name identifier. Faith SANCHEZN RN AC
== END 2020-10-08 11:31 | disposition home or self-care (01) | DRG 92 ==
LOC: ED 19:32 → MS3 20:03
PROVIDERS: Admitting Provider Internal Medicine; Emergency Provider Emergency Medicine; PCP Family Medicine; Visit Provider Hospitalist
DX: R26.0 Ataxic gait (principal); J96.10 Chronic respiratory failure, unspecified whether with hypoxia or hypercapnia; I95.1 Orthostatic hypotension; E03.9 Hypothyroidism, unspecified; E11.22 Type 2 diabetes mellitus with diabetic chronic kidney disease; I12.9 Hypertensive chronic kidney disease with stage 1 through stage 4 chronic kidney disease, or unspecified chronic kidney disease; N18.30 Chronic kidney disease, stage 3 unspecified; E11.51 Type 2 diabetes mellitus with diabetic peripheral angiopathy without gangrene; E78.00 Pure hypercholesterolemia, unspecified; E78.5 Hyperlipidemia, unspecified; E86.0 Dehydration; J44.9 Chronic obstructive pulmonary disease, unspecified; I25.709 Atherosclerosis of coronary artery bypass graft(s), unspecified, with unspecified angina pectoris; I65.21 Occlusion and stenosis of right carotid artery; Z79.4 Long term (current) use of insulin; E66.9 Obesity, unspecified; Z86.73 Personal history of transient ischemic attack (TIA), and cerebral infarction without residual deficits; Z87.891 Personal history of nicotine dependence; Z99.81 Dependence on supplemental oxygen; Z79.02 Long term (current) use of antithrombotics/antiplatelets; Z79.899 Other long term (current) drug therapy; R10.9 Unspecified abdominal pain
CPT/HCPCS: 36415; 70551; 71045; 74018; 80053; 81001; 82150; 82962; 83605; 83690; 84100; 84484; 85025; 85610; 85652; 87086; 87426; 87635; 93005; 94640; 97162; 97166; 97802; 99251; 99285; 99406; J7030; J7040; A4216; G0463; U0003

== ENCOUNTER → 2020-12-08 09:31 | Outpatient (CLI) | payer MEDICARE, SELFPAY ==
[2020-10-06 21:38] VITALS: BMI 34.9
[2020-11-29 13:31] VITALS: BMI 36.1
--- NOTE | 2020-12-08 09:35 | ART_ITS ---
Reason For Study: PVD, Ulcer right foot Procedure A bilateral lower extremity continuous wave Doppler with analog waveform analysis,segmental pressures,and ankle brachial indexes without exercise. Left Segmental Pressures Left brachial= 123mmHg. Left thigh = 158mmHg. Left calf = 80mmHg. Left posterior tibial artery = 89mmHg. Left dorsalis pedis artery = 84mmHg. Left digit = 70 mmHg. The left dorsalis pedis waveforms are monophasic. The left posterior tibial artery waveforms are biphasic. Right Segmental Pressures Right brachial= 126mmHg. Right posterior tibial artery = 128mmHg. Right dorsalis pedis artery = 124mmHg. Right digit = 111 mmHg. The right dorsalis pedis waveforms are triphasic. The right posterior tibial artery waveforms are triphasic. Indices The right ankle brachial index by the dorsalis pedis is 0.98. The right ankle brachial index by the posterior tibial artery is 1.02. The right digital-brachial index is 0.88. The left ankle brachial index by the dorsalis pedis is 0.67. The left ankle brachial index by the posterior tibial artery is 0.71. The left digital-brachial index is 0.56. Interpretation Summary Right leg with no evidence occlussive disease at rest with triphasic flow and ENEDELIA 1.02. Left with moderate disease and biphasic flow with ENEDELIA 0.71. Ordering Physician: Megan Guzmán Referring Physician: Farhad Tomlinson MD Performed By: Carly Bray RVT
== END ==
PROVIDERS: PCP Family Medicine; Referring Provider Podiatrist; Visit Provider Podiatrist
DX: I73.9 Peripheral vascular disease, unspecified (principal); L97.519 Non-pressure chronic ulcer of other part of right foot with unspecified severity
CPT/HCPCS: 93923

== ENCOUNTER → 2021-04-21 09:59 | Outpatient (CLI) | payer MEDICARE, SELFPAY ==
[2020-11-29 13:31] VITALS: BMI 36.1
[2021-04-21 12:47] LABS: AST(SGOT) 17 U/L (15-37); Alanine Aminotransfer ALT/SGPT 33 U/L (16-61); Albumin, Serum 3.6 g/dL (3.2-5.0); Alkaline Phosphatase 56 U/L (45-117); Anion Gap 5 (5-15); BUN 17 mg/dL (7-18); BUN/Creat Ratio 16.5 RATIO (10-20); Calcium,Total 9.1 mg/dL (8.5-10.1); Chloride 101 mmol/L (98-107); Cholesterol 198 mg/dL (200); Creatinine, Serum 1.03 mg/dL (0.70-1.30); EST Glomerular Filtration Rate 76 mL/min (>60); Est Glom Filt Rate - Afr Amer 92 mL/min (>60); Globulin 3.6 g/dL (2.2-4.2); Glucose 139 mg/dL (74-106); High Density Lipoprotein 30 mg/dL; PSA,Total - Annual Screen 0.95 ng/mL (0.00-4.00); Potassium 4.2 mmol/L (3.5-5.1); Protein, Total 7.2 g/dL (6.4-8.2); Sodium Level 141 mmol/L (136-145); Thyroid Stim Hormone (TSH) 1.65 uIU/mL (0.358-3.74); Triglycerides 250 mg/dL; Very Low Density Lipoprotein 50 mg/dL (5-40)
[2021-04-21 14:02] LABS: Vitamin B12 288 pg/mL (211-911)
== END ==
PROVIDERS: PCP Family Medicine; Referring Provider Family Medicine; Visit Provider Family Medicine
DX: E11.40 Type 2 diabetes mellitus with diabetic neuropathy, unspecified (principal); Z12.5 Encounter for screening for malignant neoplasm of prostate; E03.9 Hypothyroidism, unspecified
CPT/HCPCS: 36415; 80053; 80061; 82607; 84153; 84443; G0103

== ENCOUNTER 2021-10-17 14:19 | Outpatient (CLI) | payer MEDICARE, SELFPAY ==
[2021-10-17 17:52] LABS: Vitamin B12 294 pg/mL (211-911)
[2021-10-17 17:59] LABS: AST(SGOT) 14 U/L (15-37); Alanine Aminotransfer ALT/SGPT 35 U/L (16-61); Albumin, Serum 3.6 g/dL (3.2-5.0); Alkaline Phosphatase 63 U/L (45-117); Anion Gap 4 (5-15); BUN 21 mg/dL (7-18); BUN/Creat Ratio 18.9 RATIO (10-20); Calcium,Total 8.9 mg/dL (8.5-10.1); Chloride 100 mmol/L (98-107); Creatinine, Serum 1.11 mg/dL (0.70-1.30); EST Glomerular Filtration Rate 70 mL/min (>60); Est Glom Filt Rate - Afr Amer 84 mL/min (>60); Globulin 3.7 g/dL (2.2-4.2); Glucose 185 mg/dL (74-106); Potassium 4.5 mmol/L (3.5-5.1); Protein, Total 7.3 g/dL (6.4-8.2); Sodium Level 139 mmol/L (136-145); Thyroid Stim Hormone (TSH) 1.49 uIU/mL (0.358-3.74)
[2021-10-17 18:06] LABS: Hemoglobin A1c 8.2 % (3.8-5.6)
== END 2021-10-17 23:59 | disposition short-term general hospital (02) ==
LOC: MFPLAB 14:20
PROVIDERS: PCP Family Medicine; Referring Provider Family Medicine; Visit Provider Family Medicine
DX: E53.8 Deficiency of other specified B group vitamins (principal); E11.40 Type 2 diabetes mellitus with diabetic neuropathy, unspecified; E11.65 Type 2 diabetes mellitus with hyperglycemia; Z12.5 Encounter for screening for malignant neoplasm of prostate
CPT/HCPCS: 36415; 80053; 82607; 83036; 84443

== ENCOUNTER 2022-01-01 12:56 | Outpatient (CLI) | payer MEDICARE, SELFPAY ==
[2022-01-01 15:58] LABS: Vitamin B12 685 pg/mL (211-911)
[2022-01-01 16:00] LABS: ALB/GLOB Ratio 0.9 RATIO (0.9-2.4); AST(SGOT) 21 U/L (15-37); Alanine Aminotransfer ALT/SGPT 36 U/L (16-61); Albumin, Serum 3.6 g/dL (3.2-5.0); Alkaline Phosphatase 65 U/L (45-117); Anion Gap 2 (5-15); BUN 16 mg/dL (7-18); BUN/Creat Ratio 12.7 RATIO (10-20); Calcium,Total 8.8 mg/dL (8.5-10.1); Chloride 97 mmol/L (98-107); Creatinine, Serum 1.26 mg/dL (0.70-1.30); EST Glomerular Filtration Rate 60 mL/min (>60); Est Glom Filt Rate - Afr Amer 73 mL/min (>60); Globulin 3.9 g/dL (2.2-4.2); Glucose 275 mg/dL (74-106); Potassium 4.3 mmol/L (3.5-5.1); Protein, Total 7.5 g/dL (6.4-8.2); Sodium Level 135 mmol/L (136-145); Thyroid Stim Hormone (TSH) 1.52 uIU/mL (0.358-3.74)
[2022-01-01 16:08] LABS: Hemoglobin A1c 8.4 % (3.8-5.6)
== END 2022-01-01 23:59 | disposition home or self-care (01) ==
LOC: MTLAB 12:58
PROVIDERS: PCP Family Medicine; Referring Provider Family Medicine; Visit Provider Family Medicine
DX: E11.40 Type 2 diabetes mellitus with diabetic neuropathy, unspecified (principal); E53.8 Deficiency of other specified B group vitamins
CPT/HCPCS: 36415; 80053; 82607; 83036; 84443

== ENCOUNTER → 2022-04-18 | Outpatient (CLI) | payer MEDICARE, SELFPAY ==
[2022-04-18 11:04] LABS: Cholesterol 169 mg/dL (200); High Density Lipoprotein 31 mg/dL; PSA,Total - Annual Screen 0.85 ng/mL (0.00-4.00); Triglycerides 249 mg/dL; Very Low Density Lipoprotein 50 mg/dL (5-40)
== END | disposition home or self-care (01) ==
LOC: MFPLAB 09:34
PROVIDERS: PCP Family Medicine; Referring Provider Family Medicine; Visit Provider Family Medicine
DX: E11.9 Type 2 diabetes mellitus without complications (principal); Z12.5 Encounter for screening for malignant neoplasm of prostate
CPT/HCPCS: 36415; 80061; 84153; G0103

== ENCOUNTER → 2022-07-18 | Outpatient (CLI) | payer MEDICARE, SELFPAY ==
[2022-07-18 10:05] LABS: Absolute Lymphocyte Count 1.02 X10^3/uL (0.83-4.51); Absolute Neutrophil Count 3.7 X10^3/uL (2.0-7.7); Basophil# 0.04 X10^3/uL; Basophil% 0.7 % (0-1); Eosinophil# 0.23 X10^3/uL; Eosinophils% 4.2 % (0-5); Hematocrit 42.6 % (40-54); Hemoglobin 13.1 g/dL (13.0-16.5); Lymphocyte # 1.02 X10^3/ul (0.83-4.51); Lymphocyte % 18.7 % (19-41); Mean Corp Hgb Conc 30.8 g/dL (32-36); Mean Corpuscular Hgb 30.3 pg (27.0-32.0); Mean Corpuscular Volume 98.6 fL (80-94); Mean Platelet Vol. 11.3 fl (6.2-12.0); Monocyte# 0.46 X10^3/uL; Monocyte% 8.4 % (0-10); NRBC Flagged by Analyzer 0 % (0-5); Neutrophil # 3.68 X10^3/uL (2.7-7.7); Neutrophil % 67.5 % (47-70); Platelet Count 221 K/mm3 (150-450); RBC Distribution Width CV 12.2 % (11.6-14.6); RBC Distribution Width SD 44.1 fl (35.1-43.9); Red Blood Count 4.32 M/mm3 (4.6-6.2); White Blood Count 5.5 K/mm3 (4.4-11.0)
[2022-07-18 10:48] LABS: Anion Gap 4 (5-15); BUN 21 mg/dL (7-18); BUN/Creat Ratio 19.1 RATIO (10-20); Calcium,Total 9.3 mg/dL (8.5-10.1); Chloride 98 mmol/L (98-107); EST Glomerular Filtration Rate 70 mL/min (>60); Est Glom Filt Rate - Afr Amer 85 mL/min (>60); Glucose 210 mg/dL (74-106); Potassium 4.6 mmol/L (3.5-5.1); Sodium Level 138 mmol/L (136-145)
== END | disposition home or self-care (01) ==
LOC: MFPLAB 09:26
PROVIDERS: Physician Assistant Medical; PCP Family Medicine; Referring Provider Family Medicine; Visit Provider Family Medicine
DX: E78.00 Pure hypercholesterolemia, unspecified (principal)
CPT/HCPCS: 36415; 80048; 85025

== ENCOUNTER 2023-03-23 20:59 | Emergency (ER) | payer MEDICARE, SELFPAY ==
[2023-03-23 21:00] VITALS: BP 156/77; PULSE 73; RESP 16; TEMP 36.2; O2SAT 97; BMI 37.1
--- NOTE | 2023-03-23 21:09 | EDS_ITS ---
HPI History of Present Illness Chief Complaint: Wound Informant: patient and spouse/S.O. Narrative Narrative: Patient is on aspirin and clopidogrel, about an hour ago he was trimming his toenails and he trimmed the right fourth toenail back too far and it started bleeding and he has been unable to get it to stop. They were wrapping it in a paper towel but not holding pressure. He denies any other issues tonight or injuries. 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 100 mcg-umeclid 62.5 mcg-vilant 25 mcg inhalat.powder (Trelegy Ellipta) 1 inh inhalation DAILY 06/02/21 [History Last Taken Unknown] sitagliptin phosphate 100 mg tablet (Januvia) 100 mg PO DAILY 06/02/21 [History Last Taken Unknown] cyanocobalamin (vitamin B-12) 1,000 mcg tablet 1,000 mcg PO DAILY 03/13/22 [History Last Taken Unknown] furosemide 40 mg tablet 40 mg PO DAILY #90 tabs 03/13/22 [Rx Last Taken Unknown] isosorbide mononitrate 60 mg tablet,extended release 24 hr 60 mg PO BID #180 tabs 07/16/22 [Rx Last Taken Unknown] lisinopril 5 mg tablet 5 mg PO DAILY 07/16/22 [History Last Taken Unknown] insulin lispro 100 unit/mL subcutaneous pen 25 unit subcut ACHS dm 100 days #30 mL 09/04/22 [History Last Taken Unknown] ipratropium 0.5 mg-albuterol 3 mg (2.5 mg base)/3 mL nebulization soln 3 ml continuous nebulization .QID 09/04/22 [History Last Taken Unknown] clopidogrel 75 mg tablet 75 mg PO DAILY #90 tabs 03/04/23 [Rx Last Taken Unknown] ezetimibe 10 mg tablet 10 mg PO DAILY #90 tabs 03/04/23 [Rx Last Taken Unknown] insulin glargine 100 unit/mL (3 mL) subcutaneous pen (Lantus Solostar U-100 Insulin) 50 unit subcut QHS diabetes 03/22/23 [History Last Taken Unknown] metformin 850 mg tablet 850 mg PO BID 03/22/23 [History Last Taken Unknown] metoprolol tartrate 25 mg tablet 25 mg PO BID #180 tabs 03/22/23 [Rx Last Taken Unknown] nitroglycerin 0.4 mg sublingual tablet 0.4 mg sublingual Q5-15M PRN chest pain #25 tabs 03/22/23 [Rx Last Taken Unknown] Allergy/AdvReac Type Severity Reaction Status Date / Time amlodipine Allergy dyspnea, Verified 03/23/23 21:08 itching atorvastatin calcium Allergy Other Verified 03/23/23 21:08 [From Lipitor] lovastatin [From Advicor] Allergy Rash Verified 03/23/23 21:08 niacin [From Advicor] Allergy Rash Verified 03/23/23 21:08 rosuvastatin calcium Allergy Rash Verified 03/23/23 21:08 [From Crestor] Jktbjiy-BQP-RkU Reductase Allergy Hives Verified 03/23/23 21:08 Inhibitor [Jgjdune-Wnz-Qqp Reductase Inhibitor] thiopental [From Pentothal] Allergy Other Verified 03/23/23 21:08 ranolazine [From Ranexa] AdvReac Intermediate Frequent Verified 03/23/23 21:08 falls (?) Family History Grandmother Cancer Father FH: brain aneurysm CAD (coronary artery disease) Mother Diabetes Brother , from CABG CAD (coronary artery disease) Surgical History H/O coronary artery bypass surgery (06/21/03) History of coronary artery stent placement (11/13/11) History of left heart catheterization (03/06/19) History of right-sided carotid endarterectomy (04/2015) Hx of cataract surgery Hx of colonoscopy Social History Smoking Status: Former smoker how long ago did patient quit smokin alcohol intake: never substance use type: does not use diet: diabetic caffeine: Yes Type: coffee what type of physical activity do you participate in: none seatbelt use: always do you feel safe at home: Yes ROS ROS ED Constitutional Constitutional ED: Denies chills or fever(s) Musculoskeletal Musculoskeletal: Denies extremity pain or neck pain Integumentary Reports wounds; Denies Abrasions or rash Neurologic Neurologic: Denies paresthesias or weakness Hematologic/Lymphatic Hematologic/Lymphatic: Reports easy bleeding and easy bruising EXAM Physical Exam Const Vital Signs: 03/23/23 21:00 Temperature 97.1 F L Temperature Source Temporal Pulse Rate 73 Respiratory Rate 16 Blood Pressure 156/77 H Blood Pressure Mean 103 Pulse Ox 97 Positive well nourished and well developed General Appearance ED: well developed and NAD Neck full ROM and supple Back/Spine normal ROM and normal to inspection Extremity normal to inspection and full ROM Extremity Narrative: Nontender right fourth toe, the toe of interest Neuro oriented x3, no focal motor deficits and no sensory deficits noted Sensorium / Orientation: alert Psych mental status grossly normal and thought process normal Skin Skin Narrative: Small abrasion distal aspect of the right fourth toe at the tip of the nail which has been cut back just to the nail bed. There does not appear to be any laceration to repair, nailbed injury, and there is no active bleeding or signs of infection. Rashes: no rashes MDM MDM MDM Narrative Medical decision making narrative: Patient reassured, there is no further active bleeding. Even after I gently cleanse the wound with moist/wet gauze, there is no bleeding and he has good hemostasis with some dried blood on his toe. We cleansed it and placed bacitracin on it with a dressing, advised him to continue changing dressings with antibiotic ointment on them at least once daily to watch for signs of infection since he is a diabetic, otherwise reassured and we discussed applying pressure to the wound in order to stop the bleeding if it recurs. Discharge Plan Triage Chief Complaint: Wound ED Provider: Lester Condon Dx/Rx/DC Orders Clinical Impression: Abrasion of fourth toe, right Instructions: ED Abrasion Prescriptions: No Action Lantus Solostar U-100 Insulin 100 unit/mL (3 mL) insulin pen 50 unit SC QHS Label Comments: 1/2 dosage night before insulin lispro 100 unit/mL insulin pen 25 unit SC ACHS 100 Days Qty: 30 levothyroxine 88 mcg tablet 88 mcg PO DAILY Januvia 100 mg tablet 100 mg PO DAILY Trelegy Ellipta 100-62.5-25 mcg blister with device 1 inh inhalation DAILY cyanocobalamin (vitamin B-12) 1,000 mcg tablet 1,000 mcg PO DAILY Label Comments: TAKE 1 TABLET BY MOUTH ONCE DAILY furosemide 40 mg tablet 40 mg PO DAILY Qty: 90 3RF lisinopril 5 mg tablet 5 mg PO DAILY isosorbide mononitrate 60 mg tablet extended release 24 hr 60 mg PO BID Qty: 180 3RF ipratropium-albuterol 0.5 mg-3 mg(2.5 mg base)/3 mL solution for nebulization 3 ml continuous nebulization .QID metformin 850 mg tablet 850 mg PO BID Label Comments: TAKE 1 TABLET BY MOUTH TWICE DAILY metoprolol tartrate 25 mg tablet 25 mg PO BID Qty: 180 3RF nitroglycerin 0.4 mg tablet, sublingual 0.4 mg SUBLINGUAL Q5-15M PRN (Reason: chest pain) Qty: 25 6RF Rx Instructions: one tablet sublingual every 5-15 minutes not to exceed 3 doses. albuterol sulfate 1 INHALER inhaler 2 puff INHALATION Q6H PRN PRN (Reason: Sob &/Or Wheezing) clopidogrel 75 mg tablet 75 mg PO DAILY Qty: 90 3RF Label Comments: stopped for colonoscopy ezetimibe 10 mg tablet 10 mg PO DAILY Qty: 90 3RF Primary Care Provider: Marcell Tomlinson Referrals: Marcell Tomlinson MD [Primary Care Provider] - As Needed Activity Restrictions/Additional Instructions: Change dressing at least once daily, observing the wound ensuring that you do not see any signs of infection. Place a small amount of Neosporin or other antibiotic ointment against the dressing/wound with each change. Disposition Disposition: Home, Self Care
[2023-03-23 21:14] VITALS: RESP 17
== END 2023-03-23 21:31 | disposition home or self-care (01) ==
LOC: ED 21:30
PROVIDERS: Emergency Provider Emergency Medicine; PCP Family Medicine; Visit Provider Emergency Medicine
DX: S90.414A Abrasion, right lesser toe(s), initial encounter (principal); E11.51 Type 2 diabetes mellitus with diabetic peripheral angiopathy without gangrene; J44.9 Chronic obstructive pulmonary disease, unspecified; I25.709 Atherosclerosis of coronary artery bypass graft(s), unspecified, with unspecified angina pectoris; Z79.4 Long term (current) use of insulin; Z87.891 Personal history of nicotine dependence; E78.5 Hyperlipidemia, unspecified; I10 Essential (primary) hypertension; Z79.02 Long term (current) use of antithrombotics/antiplatelets; Z79.82 Long term (current) use of aspirin; Z79.899 Other long term (current) drug therapy; Z86.73 Personal history of transient ischemic attack (TIA), and cerebral infarction without residual deficits; Z79.51 Long term (current) use of inhaled steroids; Z79.84 Long term (current) use of oral hypoglycemic drugs; Z95.5 Presence of coronary angioplasty implant and graft; X58.XXXA Exposure to other specified factors, initial encounter
CPT/HCPCS: 99282

== ENCOUNTER → 2023-04-22 | Outpatient (CLI) | payer MEDICARE, SELFPAY ==
[2023-04-22 18:06] LABS: Vitamin B12 710 pg/mL (211-911)
[2023-04-22 18:23] LABS: AST(SGOT) 20 U/L (15-37); Alanine Aminotransfer ALT/SGPT 40 U/L (16-61); Albumin, Serum 3.4 g/dL (3.2-5.0); Alkaline Phosphatase 56 U/L (45-117); Anion Gap 2 (5-15); BUN 18 mg/dL (7-18); BUN/Creat Ratio 15.8 RATIO (10-20); Calcium,Total 8.4 mg/dL (8.5-10.1); Chloride 102 mmol/L (98-107); Cholesterol 175 mg/dL (200); Creatinine, Serum 1.14 mg/dL (0.70-1.30); EST Glomerular Filtration Rate 67 mL/min (>60); Est Glom Filt Rate - Afr Amer 81 mL/min (>60); Globulin 3.4 g/dL (2.2-4.2); Glucose 101 mg/dL (74-106); High Density Lipoprotein 36 mg/dL; PSA,Total - Annual Screen 1.07 ng/mL (0.00-4.00); Potassium 4.1 mmol/L (3.5-5.1); Protein, Total 6.8 g/dL (6.4-8.2); Sodium Level 141 mmol/L (136-145); Thyroid Stim Hormone (TSH) 2.04 uIU/mL (0.358-3.74); Triglycerides 329 mg/dL; Very Low Density Lipoprotein 66 mg/dL (5-40)
== END | disposition home or self-care (01) ==
LOC: MTLAB 14:32
PROVIDERS: PCP Family Medicine; Referring Provider Family Medicine; Visit Provider Family Medicine
DX: Z00.00 Encounter for general adult medical examination without abnormal findings (principal); E11.65 Type 2 diabetes mellitus with hyperglycemia; Z12.5 Encounter for screening for malignant neoplasm of prostate
CPT/HCPCS: 36415; 80053; 80061; 82043; 82607; 84153; 84443; G0103

== ENCOUNTER 2023-07-15 14:20 | Emergency (ER) | payer MEDICARE, SELFPAY ==
[2023-07-15 14:20] VITALS: BP 200/111; PULSE 156; RESP 8; TEMP 36.4; O2SAT 76
--- NOTE | 2023-07-15 14:23 | ED.RN ---
Addendum entered by Vimal Baldwin 07/15/23 15:41: time that read 1549 is actually 1449. Original Note: pt arrested on ramp for ems. 1422- 18 lac1 of epi given 1423- atropine 1424- pulse check no pulse cpr restarted 1425- epi given 1426-pulse check. no pulse cpr resumed. dr. matthews and priti to intubate. 8-0 26 at lip. 1428-epi given, pulse check no pulse 1430- pulse check. 163 hr, 200/111,. 98% intubated- cpr resumed 1432- pt shock 300j epi given 1433- pulse check. no pulse- d50 given 1434-pt shocked 360j- cpr resumed 1434- bi carb given 1435- epi given. 1436- pulse check- no pulse- cpr ressumed. 1438- pulse check. cpr resumed- epi given. 1439- pt. shocked cpr resumed. 1440- pulse check- cpr resumed. shocked at 360j 1441- 1 epi given. 1442- pulse check cpr resumed. 1444- pulse check cpr resumed 1 epi given. 1446- pulse check no pulse resumming cpr, rhythym asystole 1447 amio 300 given. 1448- pulse check dr. marcos checks with ultrasound. cpr ressumed. 1549- 1 epi given. 1450- pulse check no cardiac movement on the ultrasound per dr. marcos. 1452- pulse check no pulse cpr resumed. 1453- 1 of epi given. 1454- pulse check- pt shoes asystole. conitnueing cpr. 1456- pulse check- asystole on monitor- 1 epi given. 1458 - pulse check- no pulse. pt daughter in the room tells dr. marcos ok to stop cpr.
--- NOTE | 2023-07-15 14:36 | CM.ED ---
Social Work Referral Source: code blue Referral Reason: emotional support SW responded to code blue, no family at bedside. SW contacted patient's and introduced self and role as [facility] SW. Patient's reports having medical issues that would prevent her from coming into ED and will contact patient's daughter or other family members to come to [facility]. Care team updated. Mae Paulino TOUR LEADER, ESTELITA
[2023-07-15 14:47] LABS: Base Excess 4 mmol/L (-2 to +2); Bicarbonate 33.3 mmol/L (22-26); Blood Gas Specimen Type ART; Comment CPR; Mode Not entered; O2 Delivery Device Bagging; PO2 86 mmHG (75-100); SITE R Radial; SO2 92 % (95-99); Total Carbon Dioxide 36 mmol/L; pH 7.15 (7.35-7.45)
--- NOTE | 2023-07-15 15:05 | CPS ---
Critical arterial blood gas results handed to Dr Ruiz at 1446.
--- NOTE | 2023-07-15 15:06 | EX.ED.DYSGE1 ---
HPI History of Present Illness Chief Complaint: Unresponsive Informant: EMS and PCP Narrative Narrative: Patient is nonverbal so history is through EMS and one of her providers have gotten a call from this patient's primary physician also. This patient evidently went to his primary physician's office today with dyspnea. He evidently had some chest discomfort of some sort also. EMS was called says that he evidently looked quite dyspneic. He was placed on BiPAP and appeared to improve clinically somewhat. But EMS had great trouble maintaining his saturations. They did get them to improve though. As EMS was pulling in the facility the patient arrested. CPR was started. He was then brought into room 1. Patient does have known history of heart disease and bypass surgery. He is also had CVA cholesterol blood pressure and diabetes along with obesity. Further history is really not obtainable. Due to the above reasons, review of systems is unable to be obtained beyond what is listed in this history of present illness. 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 100 mcg-umeclid 62.5 mcg-vilant 25 mcg inhalat.powder (Trelegy Ellipta) 1 inh inhalation DAILY 06/02/21 [History Last Taken Unknown] sitagliptin phosphate 100 mg tablet (Januvia) 100 mg PO DAILY 06/02/21 [History Last Taken Unknown] cyanocobalamin (vitamin B-12) 1,000 mcg tablet 1,000 mcg PO DAILY 03/13/22 [History Last Taken Unknown] furosemide 40 mg tablet 40 mg PO DAILY #90 tabs 03/13/22 [Rx Last Taken Unknown] isosorbide mononitrate 60 mg tablet,extended release 24 hr 60 mg PO BID #180 tabs 07/16/22 [Rx Last Taken Unknown] lisinopril 5 mg tablet 5 mg PO DAILY 07/16/22 [History Last Taken Unknown] insulin lispro 100 unit/mL subcutaneous pen 25 unit subcut ACHS dm 100 days #30 mL 09/04/22 [History Last Taken Unknown] ipratropium 0.5 mg-albuterol 3 mg (2.5 mg base)/3 mL nebulization soln 3 ml continuous nebulization .QID 09/04/22 [History Last Taken Unknown] clopidogrel 75 mg tablet 75 mg PO DAILY #90 tabs 03/04/23 [Rx Last Taken Unknown] ezetimibe 10 mg tablet 10 mg PO DAILY #90 tabs 03/04/23 [Rx Last Taken Unknown] insulin glargine 100 unit/mL (3 mL) subcutaneous pen (Lantus Solostar U-100 Insulin) 50 unit subcut QHS diabetes 03/22/23 [History Last Taken Unknown] metformin 850 mg tablet 850 mg PO BID 03/22/23 [History Last Taken Unknown] metoprolol tartrate 25 mg tablet 25 mg PO BID #180 tabs 03/22/23 [Rx Last Taken Unknown] nitroglycerin 0.4 mg sublingual tablet 0.4 mg sublingual Q5-15M PRN chest pain #25 tabs 03/22/23 [Rx Last Taken Unknown] Allergy/AdvReac Type Severity Reaction Status Date / Time amlodipine Allergy dyspnea, Verified 04/08/23 13:20 itching atorvastatin calcium Allergy Other Verified 04/08/23 13:20 [From Lipitor] lovastatin [From Advicor] Allergy Rash Verified 04/08/23 13:20 niacin [From Advicor] Allergy Rash Verified 04/08/23 13:20 rosuvastatin calcium Allergy Rash Verified 04/08/23 13:20 [From Crestor] Ozqvdnm-GOI-YzN Reductase Allergy Hives Verified 04/08/23 13:20 Inhibitor [Vyarynh-Gbx-Qse Reductase Inhibitor] thiopental [From Pentothal] Allergy Other Verified 04/08/23 13:20 ranolazine [From Ranexa] AdvReac Intermediate Frequent Verified 04/08/23 13:20 falls (?) Family History Grandmother Cancer Father FH: brain aneurysm CAD (coronary artery disease) Mother Diabetes Brother , from CABG CAD (coronary artery disease) Surgical History H/O coronary artery bypass surgery (06/21/03) History of coronary artery stent placement (11/13/11) History of left heart catheterization (03/06/19) History of right-sided carotid endarterectomy (04/2015) Hx of cataract surgery Hx of colonoscopy Social History Smoking Status: Former smoker how long ago did patient quit smokin alcohol intake: never substance use type: does not use diet: diabetic caffeine: Yes Type: coffee what type of physical activity do you participate in: none seatbelt use: always do you feel safe at home: Yes ROS ROS ED ROS Narrative Unable to obtain other than the below information. Patient is nonverbal and in full arrest. Cardiovascular Cardiovascular: Reports chest pain Respiratory/Chest Respiratory/Chest: Reports dyspnea EXAM Physical Exam Narrative Exam Narrative: General: CPR is in progress. Patient has some cyanosis of the face slightly. He does appear to be diaphoretic. HEENT: No sign of trauma. There may have been some vomitus but not a large amount. Neck: Thick unable to assess for JVD. No pulse is palpable. Lungs: No spontaneous breathing of significance. He is not moving any air. After intubation he does have breath sounds bilaterally although mildly coarse. Heart: When we are able to get EKG pads to stick, he is tachycardic in the 150s. But we have no pulse with this. Ultrasound/echo of the heart showed some cardiac motion but not any significant contractility at all. Abdomen: Obesity, no palpable mass. Slight ventral hernia. Extremities: Diaphoresis. But he is not mottled. He is not pale. Neurologic: Patient does have some motion of arms and legs but nothing clearly due to command. He has some attempted breathing on his own but is unable to move any volumes since he was intubated. Const Vital Signs: 07/15/23 14:20 07/15/23 15:08 07/15/23 15:16 Temperature 97.6 F L Temperature [5] 97.6 F L Temperature Source Temporal Pulse Rate 156 H Pulse Rate [3] 1 L Pulse Rate [6] 163 H Pulse Rate [7] 156 H Respiratory Rate 8 L Respiratory Rate [3] 16 Respiratory Rate [6] 16 Respiratory Rate [7] 16 Respiratory Effort Mechanically Ventilated Respiratory Depth Shallow Blood Pressure 200/111 H Blood Pressure [3] 214/145 H Blood Pressure [6] 231/120 H Blood Pressure Mean 140 Pulse Ox 76 42 Oxygen Delivery Method Room Air Ambu-Bag Oxygen Flow Rate (L/min) 15 MDM MDM MDM Narrative Medical decision making narrative: Please see documentation on code and nursing notes also. We continued CPR on this patient. We are then able to obtain IV on the right and the left. We initially had some difficulty getting the IV. We attempted intubation but our suction came apart so he went back to doing ambu bag for a moment. We did echo of the heart that showed very poor contractility that was not even completely mirroring the rate of his heartbeat. With suction fixed intubation was achieved with glide scope. Good breath sounds bilaterally none over the abdomen and good EZ Cap change.. Patient's had multiple doses of meds including epinephrine, atropine, amiodarone, bicarb, D50 as he was diabetic. We have cardioverted him multiple times when we have seen ventricular fibrillation or ventricular tachycardia. Patient was given atropine because early on we had 2 beats that appeared to be sinus in origin and were somewhat narrow complex on the monitor. These were widely spaced with a flat line between them with the appearance of a sinus bradycardia. This we only saw once. We had a wider complex tachycardic rhythm without pulse. This was distinct from an episodes of V. tach. V. tach was cardioverted. As time went on we never got any further pulse other than V. tach or ventricular fibrillation. He was cardioverted multiple times for V-fib but never any indication that he responded to this. I discussed the case with his Jody by phone. She evidently has illness that prevents her from leaving the house. She was not sure of his wishes. But I explained the outcome was likely poor as we were getting progressively less response to treatment. His daughter had been contacted and came in. I talked to his daughter. We then got her in the room to show her the process that we were going through. The CPR and the lack of any heartbeat after CPR. At this point with almost an hour approximately of therapy, no real response we did call the code and pronounced him . No x-rays were done as we never got back return of pulse. No blood work was done as we do not have return of spontaneous circulation or pulse. EKG was not done as we can never get a rhythm. ABG Data ABG results: ABG 07/15/23 14:43 Specimen Type ART Sample Site R Radial pH 7.15 L* Bicarbonate Actual 33.3 H Total CO2 36 Base Excess 4 H O2 Saturation 92 L O2 % 100.0 ABG pCO2 96.0 H* ABG pO2 86 Petey Test N/A O2 Delivery Device Bagging Vent Mode Not entered Crit Call To/Read Back Yes Clinical Comments CPR Critical Care Time Critical Care Time: Yes Critical care time (excluding procedures): 30-74 minutes, Discussing w/Patient &/or Family/Kick Press Setter, Discussing w/Consultants, Arranging Admission or Transfer, Performing Direct Patient Care at Bedside and - (70 minutes. See history of present illness and MDM) Discharge Plan Triage Chief Complaint: Unresponsive ED Provider: Zaire Ruiz Dx/Rx/DC Orders Clinical Impression: Cardiopulmonary arrest, History of dyspnea, Respiratory failure requiring intubation, History of coronary artery disease, History of diabetes mellitus Prescriptions: No Action Lantus Solostar U-100 Insulin 100 unit/mL (3 mL) insulin pen 50 unit SC QHS Patient Comments: 1/2 dosage night before insulin lispro 100 unit/mL insulin pen 25 unit SC ACHS 100 Days Qty: 30 levothyroxine 88 mcg tablet 88 mcg PO DAILY Januvia 100 mg tablet 100 mg PO DAILY Trelegy Ellipta 100-62.5-25 mcg blister with device 1 inh inhalation DAILY cyanocobalamin (vitamin B-12) 1,000 mcg tablet 1,000 mcg PO DAILY Patient Comments: TAKE 1 TABLET BY MOUTH ONCE DAILY furosemide 40 mg tablet 40 mg PO DAILY Qty: 90 3RF lisinopril 5 mg tablet 5 mg PO DAILY isosorbide mononitrate 60 mg tablet extended release 24 hr 60 mg PO BID Qty: 180 3RF ipratropium-albuterol 0.5 mg-3 mg(2.5 mg base)/3 mL solution for nebulization 3 ml continuous nebulization .QID metformin 850 mg tablet 850 mg PO BID Patient Comments: TAKE 1 TABLET BY MOUTH TWICE DAILY metoprolol tartrate 25 mg tablet 25 mg PO BID Qty: 180 3RF nitroglycerin 0.4 mg tablet, sublingual 0.4 mg SUBLINGUAL Q5-15M PRN (Reason: chest pain) Qty: 25 6RF Rx Instructions: one tablet sublingual every 5-15 minutes not to exceed 3 doses. albuterol sulfate 1 INHALER inhaler 2 puff INHALATION Q6H PRN PRN (Reason: Sob &/Or Wheezing) clopidogrel 75 mg tablet 75 mg PO DAILY Qty: 90 3RF Patient Comments: stopped for colonoscopy ezetimibe 10 mg tablet 10 mg PO DAILY Qty: 90 3RF Primary Care Provider: Marcell Tomlinson Referrals: Marcell Tomlinson MD [Primary Care Provider] - Disposition Disposition: Date/Time: 07/15/23 16:50
[2023-07-15 15:16] VITALS: BP 214/145; BP 231/120; PULSE 1; PULSE 156; PULSE 163; RESP 16; TEMP 36.4; O2SAT 42; O2SAT 95; O2SAT 97; O2SAT 98
--- NOTE | 2023-07-15 15:19 | CM.ED ---
Social Work SW met with patient's daughter and son and introduced self and role as [facility] SW. SW provided emotional support. Patient's daughter and son need to go to patient's home to provide support to patient's who is home bound and will discuss plan for arrangements. Patient's daughter, Jody Reed [phone] and patient's son, Devin Álvarez [phone]. Patient's daughter and son are taking patient's phone, bottom dentures, keys, wallet, inhaler and shoes. SW provided ED phone number to contact with questions or updates. Family plans to return when able. Care team updated. Mae Paulino MSW, ESTELITA
--- NOTE | 2023-07-15 15:32 | CHAPLAIN ---
Type of Pastoral Visit ___ Initial Visit ___ Follow-up Visit ___ On-call Visit ___ General Patient Visit ___ Spiritual Assessment ___ Family Conference ___ Bereavement ___ Rapid Response _x__ Code Blue ___ Other (describe below) Pastoral Care Referral From ___ Patient ___ Family ___ Nurse ___ Physician ___ Calender Runner ___ Tire Design Engineer _x__ Other (describe below) Sacrament/Intervention _x__ Active listening ___ Anointing ___ Shinto _x__ Bereavement ___ Communion ___ Marcie exploration ___ ___ Life review _x__ Prayer ___ Reconciliation ___ Sacrament of Sick _x__ Supportive presence ___ Wedding ___ Other (describe below) Pastoral Comments responded to code blue in the ED; patient was brought in by squad from the doctor's office at [place] and became unresponsive en route; medical team actively worked on pt as this manufacturing industrial engineer stood by for support; family was not present initially but when the daughter came to ED this manufacturing industrial engineer escorted her to room and to meet with the attending physician; informed daughter of situation and she requested permission to enter room for final moments; this manufacturing industrial engineer was present throughout time in ED, offered prayer at daughter's request, asked for a moment of silence as time of was called; thanked staff members for their medical attention and later approached many of staff to check on their emotions and offer appreciation; son of pt also arrived at the hospital following and this manufacturing industrial engineer brought him to room and to sister; presence given along with SW for emotional support
--- NOTE | 2023-07-15 16:01 | ED.RN ---
Pt daughter Annita given pt belongings: lower dentures, shoes, wallet, and cellphone. Pt upper dentures remained due to ET tube. Upper dentures removed by staff and placed into denture cup and belongings bag. dentures departed to kristine with patient. pt family aware.
== END 2023-07-15 16:50 ==
PROVIDERS: Emergency Provider Emergency Medicine; PCP Family Medicine; Visit Provider Emergency Medicine
DX: I46.9 Cardiac arrest, cause unspecified (principal); J44.9 Chronic obstructive pulmonary disease, unspecified; J96.90 Respiratory failure, unspecified, unspecified whether with hypoxia or hypercapnia; E11.9 Type 2 diabetes mellitus without complications; Z79.4 Long term (current) use of insulin; I25.10 Atherosclerotic heart disease of native coronary artery without angina pectoris; Z87.891 Personal history of nicotine dependence; I10 Essential (primary) hypertension; E78.5 Hyperlipidemia, unspecified; Z86.73 Personal history of transient ischemic attack (TIA), and cerebral infarction without residual deficits; Z79.899 Other long term (current) drug therapy; Z79.51 Long term (current) use of inhaled steroids; Z79.02 Long term (current) use of antithrombotics/antiplatelets; Z79.84 Long term (current) use of oral hypoglycemic drugs; Z95.5 Presence of coronary angioplasty implant and graft
CPT/HCPCS: 31500; 36600; 82803; 92950; 99285; J7030; A4216